=== PATIENT | female | born 1940 | race Caucasian/White ===

== ENCOUNTER 2019-07-16 01:33 | Day surgery (SDC) | payer MEDICARE, OTHER, SELFPAY ==
[2019-07-07 14:21] VITALS: BMI 21.3
[2019-07-16] VITALS (11 sets, daily range): BP systolic 122–157; BP diastolic 52–98; PULSE 72–100; RESP 16–22; TEMP 36.3; O2SAT 93–100; BMI 20.6
--- NOTE | ~2019-07-16 | XR_ITS ---
XR chest 1V portable DATE: 07/16/2019 11:06 INDICATION: Possible aspiration TECHNIQUE: Portable upright AP chest on 07/16/2019 at 1100 hours COMPARISON: 04/08/2019 2 view chest FINDINGS: The lungs are moderately hyperinflated. No pulmonary infiltrate or consolidation, pleural e ffusion or pulmonary vascular congestion or pneumothorax is detected. Normal heart size. No hilar or mediastinal enlargement. Osteopenia. IMPRESSION: No active cardiopulmonary disease Reviewed, dictated and finalized at location A. [employer]
[2019-07-16] MEDS: LACTATED RINGERS 1,000 ML 150 ML IV CONT ×2 (08:21→09:18)
--- NOTE | 2019-07-16 08:25 | WPDGICN ---
Assessment and Plan Additional Plan This is an 79-year-old white female patient seen in evaluation at the request of Dr. Villaseñor. Patient reports 12 lb weight loss over the last year. She denies any appetite. She feels full very quickly after eating. She notices a rather vague right lower quadrant abdominal pain. She describes is a brief sharp pain that occurs intermittently. It is not specifically related to diet or activity. She denies heartburn. Her weight appetite bowel movements appear normal. Intermittently she will have chills. Past medical history is significant for GE reflux disease. She has been treated for hypothyroidism. Her last colonoscopy was in 2006. Current medications include atorvastatin. Levothyroxine. Omeprazole. Vitamins and supplements. She has no stated drug allergies. Family history is noncontributory. On physical exam patient is alert. Oriented x3. Vital signs stable. HEENT exam unremarkable. She is anicteric. Lungs are clear to auscultation and percussion. Heart is without murmur or extra sounds. Abdominal exam bowel sounds are present soft nontender with no organomegaly. Digital external rectal exam normal. Impression 1. Weight loss. 2. GE reflux disease. 3. Early satiety. 4. Right lower quadrant pain. 5. Neoplasia screening. Plan is for both colonoscopy an EGD to assess her symptoms. Further recommendations will be given after endoscopy. She should continue omeprazole for her known history of GE reflux disease. GI Consult Note Consult date/time: 07/16/19 08:25 HPI: Lety Salinas is a 79 year old female [facility] Social History Social History Smoking status: Never smoker Alcohol intake: current Meds Home Medications and Allergies Home Medications Medication Instructions Recorded Confirmed Type atorvastatin 20 mg tablet 20 mg PO DAILY PRN #90 tablet 05/04/19 07/07/19 Rx levothyroxine 50 mcg tablet 50 mcg PO DAILY #90 tablet 05/29/19 07/07/19 Rx C,E,zinc,copper [id number] 1 cap PO QAM 07/07/19 07/07/19 History [Ocuvite Adult 50 Plus] calcium carbonate-vitamin D3 1 tablet PO DAILY 07/07/19 07/07/19 History [Calcium 600 + D(3)] cyclosporine [Restasis] 1 drp OPHTHALMIC (EYE) Q12H 07/07/19 07/07/19 History denosumab [Prolia] 60 mg SUBCUT [id number] 07/07/19 07/07/19 History omeprazole 20 mg PO DAILY 07/07/19 07/07/19 History clotrimazole 10 mg marta 10 mg MUCOUS MEM .5x daily #50 07/13/19 07/13/19 Rx tablet Allergies Allergy/AdvReac Type Severity Reaction Status Date / Time No Known Drug Allergies Allergy Unknown X Verified 07/16/19 08:23
--- NOTE | 2019-07-16 08:40 | WPDANESEPPF ---
Anes - Initial Pre Proc Eval Procedure: Operation Date: 07/16/19 09:00 Proposed Procedures p Esophagogastroduodenoscopy & Screening Colonoscopy - Zay Peralta MD Date/Time: 07/16/19 08:40 Surgeon: Zay Peralta MD Pre Op Diagnosis: Neoplasm screening, GERD, early saitey Patient Data Age: 79 Gender: F Height: 4 ft 11 in Weight: 46.4 kg Last Vital Signs Temp 97.3 F L 07/16/19 08:29 Pulse 100 07/16/19 08:29 Resp 18 07/16/19 08:29 BP 135/68 07/16/19 08:29 Pulse Ox 100 07/16/19 08:29 Allergies Allergy/AdvReac Type Severity Reaction Status Date / Time No Known Drug Allergies Allergy Unknown X Verified 07/16/19 08:23 Home Medications Medication Instructions Recorded Confirmed Type atorvastatin 20 mg tablet 20 mg PO DAILY PRN #90 tablet 05/04/19 07/07/19 Rx levothyroxine 50 mcg tablet 50 mcg PO DAILY #90 tablet 05/29/19 07/07/19 Rx C,E,zinc,copper [id number] 1 cap PO QAM 07/07/19 07/07/19 History [Ocuvite Adult 50 Plus] calcium carbonate-vitamin D3 1 tablet PO DAILY 07/07/19 07/07/19 History [Calcium 600 + D(3)] cyclosporine [Restasis] 1 drp OPHTHALMIC (EYE) Q12H 07/07/19 07/16/19 History denosumab [Prolia] 60 mg SUBCUT [id number] 07/07/19 07/07/19 History omeprazole 20 mg PO DAILY 07/07/19 07/07/19 History clotrimazole 10 mg marta 10 mg MUCOUS MEM .5x daily #50 07/13/19 07/16/19 Rx tablet Patient hx anesthesia problems: none Family hx anesthesia problems: none PMFSH Past Medical History Medical History (Updated 07/16/19 @ 08:40 by Darci Soares MD) Asthma GERD (gastroesophageal reflux disease) Hyperlipidemia Hypothyroid KARMEN (obstructive sleep apnea) Social History Social History Smoking status: Never smoker Alcohol intake: current Anes - Eval Final PreProcedure Day of Procedure 07/16/19 08:40 Patient weight: normal Heart: regular rate and rhythm Lungs: clear to auscultation Airway: Mallampati scale class II Neurological: alert and oriented Last oral intake: >/= 8 hours ASA classification: III Emergent: no Anesthetic plan: proceed Anesthesia type and monitoring: general GIVS and standard monitoring Informed Consent: The patient's anesthetic plan and its attendant risks and benefits were discussed with the patient/family/POA. Questions were solicited and answers provided to the satisfaction of the patient/family/POA.
[2019-07-16] MEDS: BENZOCAINE (*SP) 60 ML SPRAY CAN (HURRICAINE) 1 SPRAY MUCOUS MEM (09:21)
[2019-07-16] MEDS: SIMETHICONE ORAL SUSPENSION 20 MG/0.3 ML 30 ML BOTTLE 0.6 ML IRRIGATION (09:41)
--- NOTE | 2019-07-16 10:49 | SUR.PHASEII ---
Patient having some chest pain, Dr. Soares aware and orders given for portable chest x-ray.
--- NOTE | 2019-07-16 11:00 | SUR.PHASEII ---
x-ray in room @1105
--- NOTE | 2019-07-16 11:42 | SUR.PHASEII ---
Chest x-ray results read, Dr. Soares aware. Dr. Soares talked with patient and patient was sent home with incentive spirometer and encouraged use.
== END 2019-07-16 11:49 | disposition home or self-care (01) ==
PROVIDERS: PCP Family Medicine; Visit Provider Internal Medicine Gastroenterology
PROC: 0DJ08ZZ Inspection of Upper Intestinal Tract, Via Natural or Artificial Opening Endoscopic (ICD-10-PCS; CPT 43235; principal; 2019-07-16 09:00)
DX: Z12.11 Encounter for screening for malignant neoplasm of colon (principal); R10.31 Right lower quadrant pain; D12.2 Benign neoplasm of ascending colon; K57.30 Diverticulosis of large intestine without perforation or abscess without bleeding; K64.8 Other hemorrhoids; K21.9 Gastro-esophageal reflux disease without esophagitis; E03.9 Hypothyroidism, unspecified; R63.4 Abnormal weight loss; R68.81 Early satiety
CPT/HCPCS: 45385; 43239; 71045; 87081; 88305; J2704; J7120

== ENCOUNTER → 2019-08-06 11:37 | Outpatient (REF) | payer MEDICARE, OTHER, SELFPAY | LOC: ANHLAB 11:37 | PROVIDERS: PCP Family Medicine; Visit Provider Nurse Practitioner Family | DX: H61.001 Unspecified perichondritis of right external ear (principal) | CPT/HCPCS: 88305 ==

== ENCOUNTER 2019-08-22 09:59 | Emergency (ER) | payer MEDICARE, OTHER, SELFPAY ==
[2019-08-22 10:13] VITALS: BP 128/65; PULSE 95; RESP 18; TEMP 38.7; O2SAT 100
[2019-08-22 10:15] VITALS: TEMP 38.8
[2019-08-22] MEDS: ACETAMINOPHEN 500 MG TABLET 1000 MG PO (10:15)
--- NOTE | 2019-08-22 10:34 | PC.NURSE ---
Tylenol 1000 mg given at 0925-won't scan
--- NOTE | 2019-08-22 10:48 | ED.GENADULT ---
HPI - General Adult General Chief complaint: Upper Respiratory Infection Stated complaint: Fever Time Seen by Provider: 08/22/19 10:48 Source: patient and RN notes reviewed Mode of arrival: ambulatory Limitations: no limitations History of Present Illness HPI narrative: 79-year-old female with complaints of upper respiratory infection symptoms, fever, and cough for the past (started last Saturday night, awaken during the night with symptoms) 3 days. Aspirin (2 tablets last on 08/21/19 @21:00)with little relief. Dry cough. No chest congestion. Rhinorrhea and nasal congestion. No exacerbating factors. High fevers, highest 101.5F, orally with intermittent chills. No nausea, vomiting, and abdominal pain. Tolerating po intake well. Denies chest pain, dyspnea, coughing up blood, sore throat, difficulty swallowing, jaw pain, dental pain, facial pain, foreign body sensation, and rash. Remains active. Some parts of this dictation were generated by voice recognition software and may contain typographical and/or grammatical inaccuracies. Related Data Home Medications Medication Instructions Recorded Confirmed C,E,zinc,copper [id number] 1 cap PO QAM 07/07/19 08/22/19 [Ocuvite Adult 50 Plus] calcium carbonate-vitamin D3 1 tablet PO DAILY 07/07/19 08/22/19 [Calcium 600 + D(3)] cyclosporine [Restasis] 1 drp OPHTHALMIC (EYE) Q12H 07/07/19 08/22/19 denosumab [Prolia] 60 mg SUBCUT [id number] 07/07/19 08/22/19 omeprazole 20 mg PO DAILY 07/07/19 08/22/19 Allergies Allergy/AdvReac Type Severity Reaction Status Date / Time No Known Drug Allergies Allergy Unknown X Verified 08/22/19 10:48 Review of Systems Review of Systems: Narrative: CONSTITUTIONAL: Complains of fever, chills. Denies sweats. EYES: Denies visual changes, redness, discharge. ENT: Complains of rhinorrhea, congestion. Denies sore throat, otalgia. CARDIOVASCULAR: Denies chest pain, palpitations, edema. RESPIRATORY: Denies dyspnea, wheezing. Complains of dry cough. GASTROINTESTINAL: Denies abdominal pain, nausea, vomiting, diarrhea. GENITOURINARY: Denies dysuria, hematuria, abnormal discharge. SKIN: Denies rash or itching. MUSCULOSKELETAL: Denies acute back pain, joint pain, myalgia. NEUROLOGIC: Denies numbness or focal weakness. PSYCHIATRIC: Denies anxiety or depression. All systems reviewed & are unremarkable except as noted in HPI and below. [facility] Past Medical History Medical History Asthma GERD (gastroesophageal reflux disease) Hyperlipidemia Hypothyroid KARMEN (obstructive sleep apnea) Surgical History Surgical History History of cataract extraction Family History Family History Mother Hypertension Family history of cardiovascular disease Cerebrovascular accident Father Family history of cardiovascular disease Family history of hepatitis Family history of congestive heart failure Grandparent Family history of cardiovascular disease Other Family history of lung cancer Family history of malignant neoplasm Family history of malignant neoplasm of ovary Social History Social History (Updated 08/22/19 @ 10:57 by LILLY Martinez) Smoking status: Never smoker Second hand tobacco smoke exposure: No Alcohol intake: current Substance use: never Living arrangements: with family Occupation/Education: retired Gender identity (if verbalized by the patient): Female Comments At time of signature, agree with nurse past medical, surgical, social, and family history. There is no relevant family history pertinent to the presenting complaint. Exam Narrative: Exam Narrative: GENERAL: This is a well-nourished, well-developed patient, in no apparent distress. Speaks in full sentences and ambulates with steady gait without dyspnea. HEAD: normocephalic, a
[2019-08-22 11:04] VITALS: PULSE 88; RESP 16; TEMP 38.6; O2SAT 98
== END 2019-08-22 11:04 | disposition home or self-care (01) ==
PROVIDERS: Emergency Provider Nurse Practitioner Family; PCP Family Medicine
DX: J11.1 Influenza due to unidentified influenza virus with other respiratory manifestations (principal)
CPT/HCPCS: 87804; 99213; A9270; G0463

== ENCOUNTER 2020-05-10 06:52 | Outpatient (NON) | payer MEDICARE, OTHER, SELFPAY ==
[2020-05-11 02:00] LABS: SARS-CoV-2 RNA PCR Positive
== END 2020-05-10 06:53 ==
PROVIDERS: PCP Family Medicine; Visit Provider Family Medicine
DX: U07.1 COVID-19 (principal)
CPT/HCPCS: 87635; C9803; U0003

== ENCOUNTER 2020-05-12 18:58 | Emergency (ER) | payer MEDICARE, OTHER, SELFPAY ==
[2020-05-12] VITALS (30 sets, daily range): BP systolic 123–167; BP diastolic 55–76; PULSE 57–97; RESP 12–40; TEMP 36.7; O2SAT 96–100
--- NOTE | ~2020-05-12 | CT_ITS ---
EXAMINATION: CT abdomen pelvis w con DATE: 05/12/2020 20:43 INDICATION: Abdominal pain. Nausea and vomiting. TECHNIQUE: Computed tomography (CT) of the abdomen and pelvis was performed with 100 mL Omnipaque 350 intravenous contrast. Automated exposure control and iterative reconstruction technique were employe d. The dose-length product was 183.75 mGy-cm. COMPARISON: CT abdomen and pelvis 09/24/18 FINDINGS: The visualized portions of the lung bases demonstrate peripheral airspace and groundglass o pacities in the lower lobes with volume loss. There are small bilateral posterior diaphragmatic herni as containing fat. No pleural effusion. The heart size is normal. No pericardial effusion. There is a small sliding hiatal hernia. The liver is normal. There is a chronic 6 mm low-attenuation mass in th e spleen, likely benign. The gallbladder, pancreas, and adrenal glands are normal. There is cortical thinning of the kidneys. There is a 2.0 cm cyst in right kidney. There are no dilated loops of bowel. The appendix is normal. Again seen are 2 cysts in the right ovary with the larger measuring 2.4 cm, likely benign. The bladder is distended. There are no pathologically enlarged lymph nodes. There is n o free intraperitoneal fluid. There is mild thoracolumbar spondylosis. IMPRESSION: 1. Peripheral airspace and groundglass opacities in the lower lobes, consistent with atelectasis vers us pneumonia. 2. Small sliding hiatal hernia. Reviewed, dictated and finalized at location A. [facility] [employer] IMPRESSION: 1. Peripheral airspace and groundglass opacities in the lower lobes, consistent with atelectasis versus pneumonia. 2. Small sliding hiatal hernia.
[2020-05-12] MEDS: SODIUM CHLORIDE 0.9% IV 1,000 ML 999 ML IV CONT (19:33)
[2020-05-12 19:59] LABS: Basophils Percent Auto 0.2 % (0.2-1.2); Eosinophils Percent Auto 0.2 % (0-4.4); Hematocrit 36.1 % (37.0-47.0); Hemoglobin 11.9 g/dL (12.0-15.0); Immature Granulocyte Absolute 0.02 K/mm3 (0.00-0.031); Immature Granulocyte Percent A 0.4 % (0-0.5); Immature Platelet Fraction Pct 7.9 % (0.9-11.2); Lymphocytes Absolute Auto 0.73 K/mm3 (0.9-3.2); Lymphocytes Percent Auto 15.1 % (18.3-44.2); Mean Corpuscular Hemoglobin 29.5 pg (26-34); Mean Corpuscular Volume 89.4 fl (80-100); Mean Platelet Volume 11.5 fl (7.4-10.4); Monocytes Absolute Auto 0.5 K/mm3 (0.1-0.6); Neutrophils Absolute Auto 3.6 K/mm3 (1.3-6.7); Neutrophils Percent Auto 74.1 % (45.5-73.1); Platelet Count Result 118 k/mm3 (150-375); Red Blood Count 4.04 M/mm3 (4.2-5.4); Red Cell Distribution Width 13.2 % (11.5-14.5); White Blood Count 4.8 K/mm3 (4.5-10.0)
[2020-05-12 20:11] LABS: Alanine Aminotransferase 41 U/L (4-35); Albumin Level 3.1 g/dL (3.5-5.1); Alkaline Phosphatase 65 U/L (38-126); Anion Gap 7 mmol/L (8-16); Aspartate Amino Transferase 50 U/L (14-36); Bilirubin,Total 0.6 mg/dL (0.2-1.3); Blood Urea Nitrogen 10 mg/dL (7-17); Carbon Dioxide 26 mmol/L (22-30); Chloride 104 mmol/L (98-107); Estimated Glomerular Filt Rate > 60; Glucose 129 mg/dL (65-105); Lipase 122 U/L (23-300); Potassium 3.7 mmol/L (3.4-5.0); Sodium 137 mmol/L (137-145)
--- NOTE | 2020-05-12 21:08 | ED.GENADULT ---
HPI - General Adult General Chief complaint: Nausea/Vomiting/Diarrhea Stated complaint: weakness Time Seen by Provider: 05/12/20 19:26 History of Present Illness HPI narrative: Patient is a 79-year-old female who presents emergency department with chief complaint of generalized weakness. Patient reports that she was recently diagnosed with COVID-19 and has had nausea and has had one episode of vomiting. The patient states that she has been extremely weak states she is not been eating very much and has had not been taking much p.o. intake. Patient reports his symptoms are not worsened by anything nor they improve by anything. Related Data Home Medications Medication Instructions Recorded Confirmed C,E,zinc,copper [id number] 1 cap PO QAM 07/07/19 03/28/20 [Ocuvite Adult 50 Plus] calcium carbonate-vitamin D3 1 tablet PO DAILY 07/07/19 03/28/20 [Calcium 600 + D(3)] cyclosporine [Restasis] 1 drp OPHTHALMIC (EYE) Q12H 07/07/19 03/28/20 denosumab [Prolia] 60 mg SUBCUT [id number] 07/07/19 03/28/20 atorvastatin 20 mg PO DAILY 03/28/20 03/28/20 omeprazole 20 mg PO BID 03/28/20 03/28/20 Allergies Allergy/AdvReac Type Severity Reaction Status Date / Time No Known Drug Allergies Allergy Unknown X Verified 05/12/20 19:13 Review of Systems Review of Systems: Narrative: CONSTITUTIONAL: Denies fever, chills, or sweats. EYES: Denies visual changes, redness, or discharge. ENT: Denies rhinorrhea, congestion, sore throat, or otalgia. CARDIOVASCULAR: Denies chest pain, palpitations, or edema. RESPIRATORY: Denies cough or dyspnea. GASTROINTESTINAL: Denies abdominal pain, nausea, vomiting, or diarrhea. GENITOURINARY: Denies dysuria or hematuria. SKIN: Denies rash or itching. MUSCULOSKELETAL: Denies back pain, joint pain, or myalgia. NEUROLOGIC: Denies headache, numbness, or weakness. PSYCHIATRIC: Denies anxiety or depression. A 10 system review of systems was completed on the patient and is negative except for what is stated in the HPI. Nursing and ancillary documentation was reviewed. [facility] Past Medical History Medical History (Updated 05/12/20 @ 22:44 by Nicholas Mehta MD) Asthma GERD (gastroesophageal reflux disease) Hyperlipidemia Hypothyroid KARMEN (obstructive sleep apnea) Surgical History Surgical History History of cataract extraction Family History Family History Mother Hypertension Family history of cardiovascular disease Cerebrovascular accident Father Family history of cardiovascular disease Family history of hepatitis Family history of congestive heart failure Grandparent Family history of cardiovascular disease Other Family history of lung cancer Family history of malignant neoplasm Family history of malignant neoplasm of ovary Social History Social History Smoking status: Never smoker Second hand tobacco smoke exposure: No Alcohol intake: current Substance use: never Gender identity (if verbalized by the patient): Female Sexual Orientation (if Verbalized by the Patient): Straight or Heterosexual Spiritual care concerns: No Exam Narrative: Exam Narrative: GENERAL: Well-appearing, well-nourished, and in no acute distress. HEAD: Normocephalic, atraumatic. EYES: PERRLA and EOMI. ENT: Nares clear, no rhinorrhea or epistaxis. Mucous membranes moist. NECK: Supple. CHEST: Clear to auscultation. No respiratory distress. HEART: Regular rate and rhythm. No murmur heard. Normal peripheral pulses. ABDOMEN: Soft, nontender, nondistended, normal active bowel sounds. EXTREMITIES: Normal range of motion. No edema. SKIN: Warm, dry, no rash. NEURO: No focal deficits. Alert and oriented x3. PSYCH: Normal mood and affect. Course Vital Signs Vital signs: Vital Signs Pulse Rate 81 05/12
[2020-05-12 21:22] LABS: Add Urine Microscopic? YES; Appearance Urine Clear (Clear); Bilirubin Urine Negative (Negative); Blood Urine Negative (Negative); Color Urine Colorless (Yellow); Glucose Urine UA Negative (Negative); Ketones Urine Trace mg/dL (Negative); Leukocyte Esterase Ur Negative LEU/UL (Negative); Nitrate Urine Negative (Negative); Protein Urine Negative (Negative); RBC Urine 0-2 /hpf (0-2); Specific Grav Ur 1.013 (1.001-1.035); Urobilinogen Urine Negative mg/dL (<2.0); WBC Urine 0-3 /hpf
[2020-05-12] MEDS: ONDANSETRON INJ 4 MG/2 ML VIAL IV PUSH (21:45)
== END 2020-05-12 23:04 | disposition home or self-care (01) ==
PROVIDERS: Emergency Provider Emergency Medicine; PCP Family Medicine
DX: U07.1 COVID-19 (principal); R11.2 Nausea with vomiting, unspecified; J45.909 Unspecified asthma, uncomplicated; K21.9 Gastro-esophageal reflux disease without esophagitis; E78.5 Hyperlipidemia, unspecified; E03.9 Hypothyroidism, unspecified; G47.30 Sleep apnea, unspecified
CPT/HCPCS: 36415; 74177; 80053; 81001; 83690; 85025; 85055; 96361; 96374; 99284; J2405; J7030; Q9967

== ENCOUNTER → 2020-09-27 07:04 | Outpatient (CLI) | payer MEDICARE, OTHER, SELFPAY ==
[2020-09-27 20:45] LABS: SARS-CoV-2 RNA PCR Negative
== END ==
PROVIDERS: PCP Family Medicine; Visit Provider Physician Assistant
DX: Z20.822 Contact with and (suspected) exposure to COVID-19 (principal); R50.9 Fever, unspecified
CPT/HCPCS: C9803; U0003; U0005

== ENCOUNTER 2021-02-03 11:36 | Emergency (ER) | payer MEDICARE, OTHER, SELFPAY ==
--- NOTE | ~2021-02-03 | XR_ITS ---
XR thoracic spine 3V DATE: 02/03/2021 16:32 INDICATION: Mid back pain TECHNIQUE: AP, lateral, swimmer views COMPARISON: None FINDINGS: There is diffuse osteopenia. There is moderately prominent loss of interspace height at C3-4, C4-5 and severe degenerative disc di sease at C5-6 and C6-7. There is degenerative spurring of the thoracic spine. There is minimal levoscoliosis of the upper thoracic spine. No thoracic spine fracture or bone destruction. The thoracic pedicles are intact. No paraspinal soft tissue thickening. IMPRESSION: Degenerative changes of the cervical and thoracic spine Osteopenia Reviewed, dictated and finalized at location A.
--- NOTE | ~2021-02-03 | XR_ITS ---
EXAMINATION: XR_CERV2-3V_CR DATE: 02/03/2021 16:32 INDICATION: Neck pain. TECHNIQUE: 4 views of cervical spine were obtained. COMPARISON: None. FINDINGS: There is 2 mm retrolisthesis of C6 on C7. Vertebral body heights are normal. There is moder ately decreased disc height at C3-C4 and C5-C6, mildly decreased disc height at C4-C5, and severely d ecreased disc height at C6-C7. There is severe uncovertebral joint osteoarthritis bilaterally at C5-C 6 and C6-C7, on the left at C3-C4, and on the right at C4-C5. There is multilevel facet joint osteoar thritis, severe on the right at C4-C5 and on the left at C5-C6. There is mild central canal stenosis at C3-C4, C4-C5, C5-C6, and C6-C7. No prevertebral soft tissue swelling. IMPRESSION: 1. Severe cervical spondylosis. Reviewed, dictated and finalized at location B.
--- NOTE | ~2021-02-03 | XR_ITS ---
XR lumbar spine 2-3V DATE: 02/03/2021 16:32 INDICATION: Low back pain TECHNIQUE: AP, lateral, coned lateral lumbosacral views COMPARISON: 09/19/2018 lumbar spine FINDINGS: There is mild dextroscoliosis of the thoracolumbar spine. Diffuse osteopenia. Grade 1 anterolisthesis at L4-5 due to degenerative change at the apophyseal joints. There is mild to moderate degenerative disc disease of the upper and mid lumbar spine. No fracture or bone destruction is detected. The lumbar pedicles are intact. The sacroiliac joints are normal. IMPRESSION: Moderate osteopenia Mild to moderate degenerative disc disease of the upper and mid lumbar spine Grade 1 anterolisthesis at L4-5 due to degenerative change at the apophyseal joints Reviewed, dictated and finalized at location A. IMPRESSION: Moderate osteopenia Mild to moderate degenerative disc disease of the upper and mid lumbar spine Grade 1 anterolisthesis at L4-5 due to degenerative change at the apophyseal elise ints
[2021-02-03 12:08] VITALS: BP 147/73; PULSE 74; RESP 16; TEMP 36.3; O2SAT 100
--- NOTE | 2021-02-03 12:11 | ECG_ITS ---
Measurements Intervals [place] Rate: 69 P: 59 SC: 153 QRS: 25 QRSD: 81 T: 19 QT: 384 QTc: 413 Interpretive Statements SINUS RHYTHM LOW QRS VOLTAGE IN PRECORDIAL LEADS BORDERLINE T WAVE ABNORMALITY- ANTERIOR LEADS BORDERLINE ECG Electronically Signed On 02-03-2021 12:18:08 CDT by Stevo Draper D.O.
[2021-02-03 15:37] VITALS: BP 120/61; PULSE 70; RESP 14; O2SAT 100
--- NOTE | 2021-02-03 16:09 | ED.BACK ---
HPI - Back Pain/Injury General Chief Complaint: Back Pain/Injury <Alanna Bailey PA-C - Last Filed: 02/03/21 18:14> Stated Complaint: back pain <CINDI Martinez Last Filed: 02/03/21 18:14> Time Seen by Provider: 02/03/21 15:38 <Alanna Bailey PA-C - Last Filed: 02/03/21 18:14> Source: patient <Alanna Bailey PA-C - Last Filed: 02/03/21 18:14> Mode of arrival: ambulatory <Alanna Bailey PA-C - Last Filed: 02/03/21 18:14> Limitations: no limitations <CINDI Martinez Last Filed: 02/03/21 18:14> History of Present Illness HPI Narrative: This is a 80 year old female that presents to the ER for back pain present over the last week. Reports the pain started in her neck. It has now radiated into her mid and low back. Reports the pain is a dull ache. It feels muscular in nature. No known injury or trauma. She has been using over the counter pain medication with little relief. Denies fever, chest pain, shortness of breath, numbness, or weakness. <Alanna Bailey PA-C - Last Filed: 02/03/21 18:14> Related Data Home Medications: Home Medications Medication Instructions Recorded Confirmed C,E,zinc,copper [id number] 1 cap PO QAM 07/07/19 01/25/21 [Ocuvite Adult 50 Plus] calcium carbonate-vitamin D3 1 tablet PO DAILY 07/07/19 01/25/21 [Calcium 600 + D(3)] cyclosporine [Restasis] 1 drp OPHTHALMIC (EYE) Q12H 07/07/19 01/25/21 denosumab [Prolia] 60 mg SUBCUT [id number] 07/07/19 01/25/21 omeprazole 20 mg PO BID 03/28/20 01/25/21 <CINDI Martinez Last Filed: 02/03/21 18:14> Allergies/Adverse Reactions: Allergies Allergy/AdvReac Type Severity Reaction Status Date / Time No Known Drug Allergies Allergy Unknown X Verified 01/25/21 10:32 <Alanna Bailey PA-C - Last Filed: 02/03/21 18:14> Review of Systems Review of Systems: CONSTITUTIONAL: Denies fever CARDIOVASCULAR: Denies chest pain RESPIRATORY: Denies dyspnea. SKIN: Denies rash MUSCULOSKELETAL: Reports back pain, joint pain, and myalgia. NEUROLOGIC: Denies numbness, or weakness. PSYCHIATRIC: Reports depression. <Alanna Bailey PA-C - Last Filed: 02/03/21 18:14> All systems reviewed & are unremarkable except as noted in HPI and below <Alanna Bailey PA-C - Last Filed: 02/03/21 18:14> PMFSH Past Medical History Medical History: Medical History (Updated 02/03/21 @ 18:13 by Alanna Bailey PA-C) Asthma GERD (gastroesophageal reflux disease) Hyperlipidemia Hypothyroid KARMEN (obstructive sleep apnea) <Alanna Bailey PA-C - Last Filed: 02/03/21 18:14> Surgical History Surgical History: Surgical History History of cataract extraction <Alanna Bailey PA-C - Last Filed: 02/03/21 18:14> Family History Family History: Family History Mother Hypertension Family history of cardiovascular disease Cerebrovascular accident Father Family history of cardiovascular disease Family history of hepatitis Family history of congestive heart failure Grandparent Family history of cardiovascular disease Other Family history of lung cancer Family history of malignant neoplasm Family history of malignant neoplasm of ovary <Alanna Bailey PA-C - Last Filed: 02/03/21 18:14> Social History Social History: Social History Second hand tobacco smoke exposure: No Alcohol intake: current Substance use: never Gender identity (if verbalized by the patient): Female Spiritual care concerns: No <Alanna Bailey PA-C - Last Filed: 02/03/21 18:14> Exam Narrative: GENERAL: Well-appearing, well-nourished, and in no acute distress. HEAD: Normocephalic, atraumatic. EYES: EOMI. NECK: Supple. No adenopathy or masses. Tender to palpation of the trapezius and paraspinal musculature bilatera
[2021-02-03 16:56] LABS: Basophils Absolute Auto 0.1 K/mm3 (0.0-0.1); Basophils Percent Auto 0.7 % (0.2-1.2); Eosinophils Absolute Auto 0.1 K/mm3 (0-0.3); Eosinophils Percent Auto 0.7 % (0-4.4); Hematocrit 35.4 % (37.0-47.0); Hemoglobin 11.2 g/dL (12.0-15.0); Immature Granulocyte Absolute 0.01 K/mm3 (0.00-0.031); Immature Granulocyte Percent A 0.1 % (0-0.5); Immature Platelet Fraction Pct 8.9 % (0.9-11.2); Lymphocytes Absolute Auto 1.51 K/mm3 (0.9-3.2); Lymphocytes Percent Auto 19.9 % (18.3-44.2); Mean Corpuscular HGB Conc 31.6 g/dl (32-36); Mean Corpuscular Hemoglobin 30.1 pg (26-34); Mean Corpuscular Volume 95.2 fl (80-100); Mean Platelet Volume 11.9 fl (7.4-10.4); Monocytes Absolute Auto 0.8 K/mm3 (0.1-0.6); Neutrophils Absolute Auto 5.2 K/mm3 (1.3-6.7); Neutrophils Percent Auto 68.6 % (45.5-73.1); Platelet Count Result 138 k/mm3 (150-375); Red Blood Count 3.72 M/mm3 (4.2-5.4); Red Cell Distribution Width 13.3 % (11.5-14.5); White Blood Count 7.6 K/mm3 (4.5-10.0)
[2021-02-03] MEDS: KETOROLAC 30 MG/ML VIAL (*BKC) IM (17:04)
[2021-02-03 17:20] LABS: Creatine Kinase 43 U/L (30-135)
[2021-02-03] MEDS: ACETAMINOPHEN 500 MG TABLET 1000 MG PO (17:34)
[2021-02-03 17:54] LABS: Anion Gap 8 mmol/L (8-16); Blood Urea Nitrogen 13 mg/dL (7-17); Calcium 8.6 mg/dL (8.4-10.2); Carbon Dioxide 22 mmol/L (22-30); Chloride 105 mmol/L (98-107); Estimated CRCL calculation 44 ml/min; Estimated Glomerular Filt Rate > 60; Glucose 80 mg/dL (65-110); Potassium 3.6 mmol/L (3.4-5.0); Sodium 135 mmol/L (137-145)
[2021-02-03 18:02] VITALS: BP 142/85; PULSE 73; RESP 14; O2SAT 98
[2021-02-03 18:40] VITALS: BP 143/66; PULSE 79; RESP 16; O2SAT 96
== END 2021-02-03 18:41 | disposition home or self-care (01) ==
PROVIDERS: Physician Assistant; Emergency Provider Emergency Medicine; PCP Family Medicine
DX: M54.2 Cervicalgia (principal); E78.5 Hyperlipidemia, unspecified; E03.9 Hypothyroidism, unspecified; G47.33 Obstructive sleep apnea (adult) (pediatric); Z87.09 Personal history of other diseases of the respiratory system
CPT/HCPCS: 36415; 72040; 72072; 72100; 80048; 82550; 85025; 85055; 93005; 96372; 99284; A9270; J1885

== ENCOUNTER 2021-03-17 10:30 | Outpatient (RCR) | payer MEDICARE, OTHER, SELFPAY ==
--- NOTE | 2021-02-24 11:26 | PTOPEVAL ---
PHYSICAL THERAPY EVALUATION AND PLAN OF CARE 02-24-21 Thank you for referring Lety Salinas to [facility] for the diagnosis of neck and back pain. She is scheduled to be seen for therapy? 2 x/week for 3 weeks. Please review, sign, date and return this plan of care THUAN. I agree with and certify that the following plan of care is medically necessary. Referring Physician Date Attending Provider: Cesar Bradshaw MD *PT Outpatient Evaluation Document 02/24/21 10:30 JAYNE (Rec: 02/24/21 11:23 JAYNE [id number]) Outpatient Past Medical History Past Medical History Source of Past Medical History Recalled from Previous Visit, Confirmed with Patient/Family Neurological History Hx Other Neurological Disorders Yes: reports some memory issues recently-confused, longer write checks,hallucinations-?meds Cardiovascular History Hx Hypercholesterolemia Yes: meds Respiratory History Hx Asthma Yes Hx Bronchitis Yes Hx Pneumonia Yes Hx Sleep Apnea Yes Gastrointestinal History Hx Diverticulitis Yes Hx Gastroesophageal Reflux Disease Yes Genitourinary History Hx Genitourinary Disorders No Significant History Musculoskeletal History Hx Arthritis Yes: neck and back pain Hx Other Musculoskeletal Disorders Yes: med to increase bone growth/prolia Hematological History Hx Hematological Disorders No Significant History Endocrine History Hx Hypothyroidism Yes: recently taken off the med, not needed HEENT History Hx Cataracts Yes: 2003 B eyes Hx Eye Surgery Yes: LASER EYE SURGERY 2009 Hx Other HEENT Disorders Yes: wear glasses, dry eye syndrome Integumentary History Hx Skin Disorders No Significant History Reproductive History Hx Hormone Therapy Yes Hx Post Menopausal Yes Psychosocial History Hx Psychiatric Disorders No Significant History Pain History History of Any Previous or Ongoing No Significant History Instance of Pain Anesthesia History Hx Anesthesia Reactions No Significant History Other History Hx Other Medical Conditions Yes: had covid- ill for about 3 weeks, Apr 2020;had covid vaccine Evaluation Information Problem Diagnosis neck and back pain Onset January 15, 2021 Subjective Information gradual increase in neck and Query Text:As Reported By Patient/ back pain; no injury or trauma Family ; went to ER Feb 03, due to pain reports neck is mor
--- NOTE | 2021-03-17 11:18 | PTOPEVAL ---
PHYSICAL THERAPY DISCHARGE 03-17-21 Refer to the clinical summary below for her status today, compared to the initial evaluation for her cervical pain. The goals were partially achieved. She will be discharged from PT at this time. Her original PT order had orders for eval and treatment of cervical and lumbar pain. She reports her back is better, as long as she watches her posture and sits up straight, and does not feel like she needs any treatment for it. Some of her home exercises for her neck address her posture and include lumbar strengthening. Thank you for referring Lety Salinas to [facility] Please review, sign, date and return this discharge THUAN. I agree with and certify that the following plan of care is medically necessary. Referring Physician Date Attending Provider: Cesar Bradshaw MD Document 03/17/21 10:30 JAYNE (Rec: 03/17/21 11:18 JAYNE [id number]) Assessment Status Discharge Subjective Information Pat reports: neck exercises Query Text:As Reported By Patient/ have helped, really like the Family stim; her low back is OK, as long as she holds her back in good posture; feels like she still has some post covid symptoms: exhausted, do not have smell, does not have an appetite, have lost 2# more recently. She is seeing her general dr, Dr Kat for these problems and he is aware of them. Feels she does not need any treatment for her back, it is better and hurts only when she slouches. Pain Assessment Timing of Pain Assessment Timing of Pain Assessment Assessment Pain Scale Pain Scale Used Numeric (1 - 10) Self Report Pain Assessment Bilateral Spine, Cervical Reported Pain Level 3 Pain Frequency Chronic,Continuous Other Pain Description L > R cervical and upper traps areas- sharp pains Lowest Pain Intensity 0 Greatest Pain Intensity 6 Other Pain Aggravating Factors slouching posture Pain Score Pain Score 3: Self Report Additional Pain Score Comments Oswestry self assessment functional score 26% limitation in activity level; pt reports neck is better-- knows how to manage it now; discussed home TENS unit and pad placement Interventions Used Interventions Used By Clinicians Education,Electrical
== END 2021-03-21 08:44 | disposition home or self-care (01) ==
LOC: ANHPT 10:30
PROVIDERS: PCP Family Medicine; Visit Provider Orthopaedic Surgery
DX: M47.812 Spondylosis without myelopathy or radiculopathy, cervical region (principal)
CPT/HCPCS: 97014; 97110; 97140; 97161; G0283

== ENCOUNTER 2021-09-21 07:40 | Outpatient (CLI) | payer MEDICARE, OTHER, SELFPAY ==
--- NOTE | ~2021-09-21 | US_ITS ---
US abdomen limited INDICATION: Abnormal liver enzymes PROCEDURE: Realtime right upper abdominal ultrasound. COMPARISON: Ultrasound dated 06/21/[address] dated 05/12/2020 FINDINGS: The pancreas is normal without focal mass or pancreatic ductal dilation. Liver echotexture is normal without focal mass or intrahepatic biliary dilatation. There is normal directional flow i n the portal vein. The gallbladder is normal without stones, gallbladder wall thickening or pericholecystic fluid. Comm on bile duct measures 5 mm. No sonographic Monaco's sign. Incidental note is made of a 1.9 cm right renal cyst. IMPRESSION: 1: Unremarkable limited abdominal ultrasound. Reviewed, dictated and finalized at location A.
== END 2021-09-21 07:41 | disposition home or self-care (01) ==
PROVIDERS: PCP Family Medicine; Visit Provider Physician Assistant
DX: R74.8 Abnormal levels of other serum enzymes (principal)
CPT/HCPCS: 76705

== ENCOUNTER 2021-10-14 07:41 | Outpatient (CLI) | payer MEDICARE, OTHER, SELFPAY ==
--- NOTE | ~2021-10-14 | DEXA_ITS ---
Bone Density Report Name: JHONATAN PALMA Age: 81 Sex: Female Ethnicity: White Date of : 1940 Indication: osteopenia; monitoring treatment; postmenopausal Referring Provider: LUDIN WHYTE Study: Bone densitometry was performed. Exam Date: October 14, 2021 Accession number: [id number] Bone Density: Region BMD T-score Z-score Classification AP Spine(L1-L4) 0.874 -1.6 1.2 Osteopenia Femoral Neck (Left) 0.595 -2.3 0.2 Osteopenia Total Hip (Left) 0.674 -2.2 0.0 Osteopenia Femoral Neck (Right) 0.591 -2.3 0.1 Osteopenia Total Hip (Right) 0.703 -2.0 0.3 Osteopenia Total Hip Mean 0.689 -2.1 0.2 Osteopenia World Health Organization criteria for BMD impression classify patients as: Normal (T-score at or above -1.0), Osteopenia (T-score between -1.0 and -2.5), or Osteoporosis (T-score at or below -2.5). 10-year Fracture Risk: FRAX not reported because: Treated for osteoporosis Previous Exams: Region Exam Age BMD T-score BMD Change BMD Change Date g/cm2 vs Baseline vs Previous AP Spine (L1-L4) 10/14/2021 81 0.874 -1.6 0.098 (12.6%)# 0.077 (9.7%)* 12/30/2015 75 0.797 -2.3 0.021 (2.7%)# 0.021 (2.7%)# 06/13/2013 72 0.776 -2.5 Total Hip(Left) 10/14/2021 81 0.674 -2.2 -0.021 (-3.0%) -0.002 (-0.4%) 12/30/2015 75 0.677 -2.2 -0.019 (-2.7%) -0.019 (-2.7%) 06/13/2013 72 0.695 -2.0 Total Hip(Right) 10/14/2021 81 0.703 -2.0 0.014 (2.1%)# 0.020 (3.0%) 12/30/2015 75 0.683 -2.1 -0.006 (-0.8%) -0.006 (-0.8%) 06/13/2013 72 0.689 -2.1 *Denotes significance at 95% confidence level, LSC for AP Spine = 0.022 g/cm2, LSC for Total Hip = 0.027 g/cm2 # Denotes dissimilar scan types or analysis methods Clinical Information Provided by Patient: Is being treated for osteoporosis Has used the following medications: Prolia (i.e. denosumab), Calcium Patient maximum height was 60 Menopause Age: 51 No regular weight bearing exercise Drinks caffeinated beverages Onset of menses at age 9 Number of children 0 Impression: The patient has low bone mass, based on the Left Femoral Neck T-score. No significant bone loss was observed. Discussion: PATIENT UNDER TREATMENT WITH NO SIGNIFICANT BMD LOSS SINCE LAST EXAM. In an untreated patient, BMD typically declines with age. A lack of decline or gain is usually a sign that treatment is efficacious and fracture risk is reduced. It is important to ask patients wh
== END 2021-10-14 07:42 | disposition home or self-care (01) ==
LOC: ANHIMG 07:42
PROVIDERS: PCP Family Medicine; Visit Provider Family Medicine
DX: M81.0 Age-related osteoporosis without current pathological fracture (principal); M85.88 Other specified disorders of bone density and structure, other site; M85.852 Other specified disorders of bone density and structure, left thigh; M85.851 Other specified disorders of bone density and structure, right thigh
CPT/HCPCS: 77080

== ENCOUNTER 2021-12-25 07:50 | Outpatient (CLI) | payer MEDICARE, OTHER, SELFPAY ==
--- NOTE | ~2021-12-25 | CT_ITS ---
EXAMINATION: CT abdomen pelvis w con DATE: 12/25/2021 08:28 INDICATION: Weight loss for one year. Constipation. TECHNIQUE: Computed tomography (CT) of the abdomen and pelvis was performed with 100 CC Omnipaque 300 intravenous contrast. Automated exposure control and iterative reconstruction technique were employe d. Exam dose: 196.33 mGy-cm total exam DLP. COMPARISON: 09/21/2021 Limited abdominal ultrasound 05/12/2020 CT abdomen pelvis FINDINGS: Small bilateral fat-containing foramen of Bochdalek hernias. Small sliding hiatal hernia. Mild discoid atelectasis in the dependent lower lobes. Heart size is within normal limits. No pericardial or pleural effusion. Diffuse hepatic steatosis. The liver, gallbladder, bile ducts, pancreas and pancreatic duct are other guzman unremarkable. Normal splenic size. There are couple of very small cysts of the spleen. Normal morphology of the adrenal glands. 1.9 cm right mid to upper lateral renal cyst and 4 mm lower pole right renal cyst. 1.3 cm exophytic upper pole left renal cyst. There is left renal scarring and mild to moderate volume loss. No urinary tract calculus or hydroureteronephrosis. The urinary urinary bladder is unremarkable. There is atherosclerotic calcification of the abdominal aorta but no aneurysm. No intraperitoneal or retroperitoneal or pelvic mass lesion or adenopathy or ascites is noted. Normal appendix. There are numerous diverticula of the sigmoid colon; no CT evidence of diverticuliti s. No bowel obstruction, bowel wall thickening, pneumatosis or intraperitoneal free air. 2. Stable right ovarian cysts are again noted, the larger approximately 2 cm, stable since 05/12/2020 . The uterus and adnexal areas are otherwise unremarkable. Degenerative change at the apophyseal joints with associated minimal grade 1 anterolisthesis at L4-5. No suspicious osteolytic or osteoblastic lesions. IMPRESSION: No significant change since 05/12/2020 Reviewed, dictated and finalized at Location A. Reviewed, dictated and finalized at location A.
[2021-12-25 08:19] LABS: Estimated Glomerular Filt Rate > 60
== END 2021-12-25 07:51 | disposition home or self-care (01) ==
PROVIDERS: PCP Family Medicine; Visit Provider Physician Assistant
DX: R63.4 Abnormal weight loss (principal)
CPT/HCPCS: 74177; Q9967

== ENCOUNTER 2022-01-15 00:20 | Day surgery (SDC) | payer MEDICARE, OTHER, SELFPAY ==
[2022-01-02 09:50] VITALS: BMI 20.3
[2022-01-15 07:09] VITALS: BP 117/75; PULSE 85; RESP 16; TEMP 36.3; O2SAT 99
[2022-01-15] MEDS: LACTATED RINGERS 1,000 ML 150 ML IV CONT (07:14)
--- NOTE | 2022-01-15 07:58 | PM.IMHP ---
H&P: HPI History of Present Illness Date/Time: 01/15/22 07:58 Chief Complaint: History of large colon polyp and GE reflux disease. Narrative: This is an 81-year-old white female patient presents for follow-up colonoscopy. Patient found to have very large colon polyps in 2019. She resents presents today for follow-up colonoscopy to ensure complete removal. Patient also continues to have dyspepsia. She is intolerant of red sauces. Has an underlying history of GE reflux disease. Follow-up EGD is advised because of her ongoing complaints of dyspepsia. Further recommendations will be given after endoscopy. Family history noncontributory. [facility] Past Medical History Medical History (Updated 11/28/21 @ 12:08 by Juan Carlos Grullon PA-C) Asthma GERD (gastroesophageal reflux disease) Hyperlipidemia Hypothyroid KARMEN (obstructive sleep apnea) Surgical History Surgical History History of cataract extraction Family History Family History Mother Hypertension Family history of cardiovascular disease Cerebrovascular accident Father Family history of cardiovascular disease Family history of hepatitis Family history of congestive heart failure Grandparent Family history of cardiovascular disease Other Family history of lung cancer Family history of malignant neoplasm Family history of malignant neoplasm of ovary Social History Social History Smoking status: Never smoker Second hand tobacco smoke exposure: No Alcohol intake: current Alcohol use details: 1 drink monthly Substance use: never Substance use type: does not use Living arrangements: with family Gender identity (if verbalized by the patient): Female Sexual Orientation (if Verbalized by the Patient): Straight or Heterosexual Spiritual care concerns: No Meds Home Medications and Allergies Home Medications Medication Instructions Recorded Confirmed Type calcium carbonate 600 mg-vitamin 1 tablet PO DAILY 07/07/19 01/15/22 History D3 5 mcg (200 unit) tablet (Calcium 600 + D(3)) cyclosporine 0.05 % eye drops in a 1 drp ophthalmic (eye) Q12H 07/07/19 01/15/22 History dropperette (Restasis) denosumab 60 mg/mL subcutaneous 60 mg subcut [id number] 07/07/19 01/15/22 History syringe (Prolia) vit C,E,zinc,copper-vmwao2b 250 1 cap PO QAM 07/07/19 01/15/22 History mg-lutein 5 mg-zeaxanthin 1 mg capsule (Ocuvite Adult 50 Plus) ipratropium bromide 21 mcg (0.03 2 spray intranasal TID #30 mL 06/20/20 01/15/22 Rx %) nasal spray fluticasone propionate 50 2 spray intranasal DAILY #16 grams 09/26/20 01/15/22 Rx mcg/actuation nasal spray,suspension (Allergy Relief (fluticasone)) omeprazole 20 mg capsule,delayed See Rx Instructions .Route 05/16/21 01/15/22 Rx release .COMPLEX #90 caps Allergies Allergy/AdvReac Type Severity Reaction Status Date / Time No Known Allergies Allergy Verified 01/15/22 07:06 Vital Signs Vital Signs - 24 hr 01/15/22 07:09 Temperature 97.4 F L Pulse Rate 85 Respiratory Rate 16 Blood Pressure 117/75 Pulse Oximetry 99 Oxygen Delivery Room Air Exam Narrative: Physical exam reveals patient to be alert. Vital signs stable. HEENT exam is unremarkable lungs are clear to auscultation and percussion. Heart is without murmur or extra sounds. Abdominal exam bowel sounds are present soft nontender with no organomegaly. Digital external rectal exam is normal. Assessment and Plan Assessment and plan (1) History of colon polyps: Code(s): Z86.010 - Personal history of colonic polyps Status: Acute Assessment and Plan: Patient has a history of very large colon polyps 2019. Plan is for surveillance colonoscopy now. Further recommendations will be given after endoscopy. (2) Gastro-esoph
--- NOTE | 2022-01-15 08:08 | WPDANESEPPF ---
Anes - Initial Pre Proc Eval Procedure: Operation Date: 01/15/22 08:30 Proposed Procedures p Esophagogastroduodenoscopy & Colonoscopy - Zay Peralta MD Date/Time: 01/15/22 08:08 Surgeon: aZy Peralta MD Pre Op Diagnosis: GERD; abnormal weight loss Patient Data Age: 81 Gender: F Height: 1.52 m Weight: 45 kg Last Vital Signs Temp 97.4 F L 01/15/22 07:09 Pulse 85 01/15/22 07:09 Resp 16 01/15/22 07:09 BP 117/75 01/15/22 07:09 Pulse Ox 99 01/15/22 07:09 O2 Del Method Room Air 01/15/22 07:09 Allergies Allergy/AdvReac Type Severity Reaction Status Date / Time No Known Allergies Allergy Verified 01/15/22 07:06 Home Medications Medication Instructions Recorded Confirmed Type calcium carbonate 600 mg-vitamin 1 tablet PO DAILY 07/07/19 01/15/22 History D3 5 mcg (200 unit) tablet (Calcium 600 + D(3)) cyclosporine 0.05 % eye drops in a 1 drp ophthalmic (eye) Q12H 07/07/19 01/15/22 History dropperette (Restasis) denosumab 60 mg/mL subcutaneous 60 mg subcut [id number] 07/07/19 01/15/22 History syringe (Prolia) vit C,E,zinc,copper-loueg7n 250 1 cap PO QAM 07/07/19 01/15/22 History mg-lutein 5 mg-zeaxanthin 1 mg capsule (Ocuvite Adult 50 Plus) ipratropium bromide 21 mcg (0.03 2 spray intranasal TID #30 mL 06/20/20 01/15/22 Rx %) nasal spray fluticasone propionate 50 2 spray intranasal DAILY #16 grams 09/26/20 01/15/22 Rx mcg/actuation nasal spray,suspension (Allergy Relief (fluticasone)) omeprazole 20 mg capsule,delayed See Rx Instructions .Route 05/16/21 01/15/22 Rx release .COMPLEX #90 caps Patient hx anesthesia problems: none Family hx anesthesia problems: none Results Review: All pre-operative results and documents have been reviewed as part of the pre-operative evaluation. COUNTS INCLUDE 234 BEDS AT THE [facility] Past Medical History Medical History (Updated 11/28/21 @ 12:08 by Juan Carlos Grullon PA-C) Asthma GERD (gastroesophageal reflux disease) Hyperlipidemia Hypothyroid KARMEN (obstructive sleep apnea) Surgical History Surgical History History of cataract extraction Family History Family History Mother Hypertension Family history of cardiovascular disease Cerebrovascular accident Father Family history of cardiovascular disease Family history of hepatitis Family history of congestive heart failure Grandparent Family history of cardiovascular disease Other Family history of lung cancer Family history of malignant neoplasm Family history of malignant neoplasm of ovary Social History Social History Smoking status: Never smoker Second hand tobacco smoke exposure: No Alcohol intake: current Alcohol use details: 1 drink monthly Substance use: never Substance use type: does not use Living arrangements: with family Gender identity (if verbalized by the patient): Female Sexual Orientation (if Verbalized by the Patient): Straight or Heterosexual Spiritual care concerns: No Anes - Eval Final PreProcedure Day of Procedure 01/15/22 08:08 Patient weight: normal Heart: regular rate and rhythm Lungs: clear to auscultation Airway: Mallampati scale class II Neurological: alert and oriented Last oral intake: >/= 8 hours ASA classification: III Emergent: no Anesthetic plan: proceed Anesthesia type and monitoring: general GIVS and standard monitoring Results Review: All pre-operative results and documents have been reviewed as part of the pre-operative evaluation. Informed Consent: The patient's anesthetic plan and its attendant risks and benefits were discussed with the patient/family/POA. Questions were solicited and answers provided to the satisfaction of the patient/family/POA.
--- NOTE | 2022-01-15 08:51 | SUR.OPER ---
EGD ended at 846, Colonoscopy began at 0853
[2022-01-15] MEDS: SIMETHICONE ORAL SUSPENSION 20 MG/0.3 ML 30 ML BOTTLE 0.6 ML IRRIGATION (08:59)
[2022-01-15 09:12] VITALS: BP 94/55; PULSE 75; RESP 24; O2SAT 98
[2022-01-15 09:22] VITALS: BP 107/61; PULSE 73; RESP 19; O2SAT 98
[2022-01-15 09:32] VITALS: BP 106/61; PULSE 70; RESP 17; O2SAT 100
== END 2022-01-15 09:45 | disposition home or self-care (01) ==
PROVIDERS: PCP Family Medicine; Visit Provider Internal Medicine Gastroenterology
PROC: 0DJ08ZZ Inspection of Upper Intestinal Tract, Via Natural or Artificial Opening Endoscopic (ICD-10-PCS; CPT 43235; principal; 2022-01-15 08:30)
DX: R63.4 Abnormal weight loss (principal); Z86.010 Personal history of colon polyps; K21.9 Gastro-esophageal reflux disease without esophagitis; K64.8 Other hemorrhoids; K57.30 Diverticulosis of large intestine without perforation or abscess without bleeding; K30 Functional dyspepsia
CPT/HCPCS: 45378; 43239; 87081; J2704; J7120

== ENCOUNTER 2022-01-22 09:46 | Outpatient (CLI) | payer MEDICARE, OTHER, SELFPAY ==
--- NOTE | ~2022-01-22 | US_ITS ---
EXAMINATION: US venous doppler LE RT DATE: 01/22/2022 10:39 INDICATION: Right lower limb swelling. TECHNIQUE: Grayscale ultrasound images without and with compression and Doppler ultrasound images of the right lower extremity veins were obtained. COMPARISON: None. FINDINGS: The visualized portions of right common femoral vein, profunda (deep) femoral vein, femoral vein, pop liteal vein, peroneal veins, posterior tibial veins, and greater saphenous vein outflow are patent. T here is a moderate-sized Prather's cyst. IMPRESSION: 1. No deep venous thrombosis. 2. Moderate-sized Prather's cyst. Reviewed, dictated and finalized at location A.
== END 2022-01-22 09:47 | disposition home or self-care (01) ==
PROVIDERS: PCP Physician Assistant; Visit Provider Physician Assistant
DX: M79.89 Other specified soft tissue disorders (principal); M71.21 Synovial cyst of popliteal space [Baker], right knee
CPT/HCPCS: 93971

== ENCOUNTER → 2022-05-08 15:39 | Outpatient (CLI) | payer MEDICARE, OTHER, SELFPAY ==
--- NOTE | ~2022-05-08 | XR_ITS ---
XR lumbar spine 2-3V DATE: 05/08/2022 16:35 INDICATION: Right leg pain TECHNIQUE: AP, lateral, coned lateral lumbosacral views COMPARISON: 02/03/2021 lumbar spine FINDINGS: There is osteopenia. There is slight anterolisthesis at L4-5 due to degenerative changes apophyseal joints. No fracture or bone destruction. Included lower thoracic and lumbar pedicles are intact. There is mild degenerative disc disease. The sacroiliac joints are intact. IMPRESSION: Osteopenia Mild degenerative disc disease Slight grade 1 anterolisthesis at L4-5 Reviewed, dictated and finalized at location A. ARE MANAGER
--- NOTE | ~2022-05-08 | XR_ITS ---
XR knee RT 3V 05/08/2022 16:35 Indication: Right knee pain Procedure: 3 views right knee Comparison: No prior studies for comparison. Findings: There is mild patellofemoral compartment osteoarthritis. No fracture, subluxation or disloc ation. No significant joint effusion. Impression: 1: Mild patellofemoral compartment osteoarthritis. Reviewed, dictated and finalized at location B. 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
== END ==
PROVIDERS: PCP Physician Assistant; Visit Provider Physician Assistant
DX: M25.561 Pain in right knee (principal); M79.604 Pain in right leg; M17.11 Unilateral primary osteoarthritis, right knee; M51.36 Other intervertebral disc degeneration, lumbar region; M85.88 Other specified disorders of bone density and structure, other site
CPT/HCPCS: 72100; 73562

== ENCOUNTER 2023-01-18 16:22 | Emergency (ER) | payer MEDICARE, OTHER, SELFPAY ==
--- NOTE | ~2023-01-18 | XR_ITS ---
EXAMINATION: XR soft tissue neck INDICATION: Left neck pain TECHNIQUE: Two views of the neck soft tissues are obtained. COMPARISON: 02/03/2021 FINDINGS: No radiopaque mass or foreign body identified. There is a questionable mild bulge in the la teral soft tissues of the neck on the left. Severe cervical spondylosis is noted. IMPRESSION: 1. Questionable bulge in the lateral soft tissues of the left neck. Further evaluation with nonemerge nt ultrasound is recommended. Reviewed, dictated and finalized at location F. IMPRESSION: 1. Questionable bulge in the lateral soft tissues of the left neck. Further corby luation with nonemergent ultrasound is recommended.
[2023-01-18 16:32] VITALS: BP 136/66; PULSE 74; RESP 16; TEMP 36.5; O2SAT 98
--- NOTE | 2023-01-18 16:33 | ED.GENADULT ---
HPI - General Adult General Chief complaint: Extremity Problem,Nontraumatic Stated complaint: L SHOULDER/NECK PAIN Time Seen by Provider: 01/18/23 16:33 Source: patient Mode of arrival: ambulatory Limitations: no limitations History of Present Illness HPI narrative: 82-year-old female presents with complaint of left-sided neck pain radiating into left shoulder ProAir in the past 4-5 days. Patient taking aspirin to treat pain without any relief. States that pain started to her left shoulder and is now radiated up to her left neck. Is causing stiffness. Pain is worse with movement. Patient also reports she saw her primary care provider 3 weeks ago due to a foreign body sensation to left side of neck with swallowing. Patient is scheduled to see GI for an endoscopy. All systems reviewed and negative except as noted above. Related Data Home Medications Medication Instructions Recorded Confirmed calcium carbonate 600 mg-vitamin 1 tablet PO DAILY 07/07/19 01/18/23 D3 5 mcg (200 unit) tablet (Calcium 600 + D(3)) cyclosporine 0.05 % eye drops in a 1 drp ophthalmic (eye) Q12H 07/07/19 01/18/23 dropperette (Restasis) denosumab 60 mg/mL subcutaneous 60 mg subcut [id number] 07/07/19 01/18/23 syringe (Prolia) Allergies Allergy/AdvReac Type Severity Reaction Status Date / Time No Known Allergies Allergy Verified 01/18/23 16:28 Review of Systems Review of Systems: CONSTITUTIONAL: Denies fever, chills, or sweats. EYES: Denies visual changes, redness, or discharge. ENT: Denies rhinorrhea, congestion, sore throat, or otalgia. CARDIOVASCULAR: Denies chest pain, palpitations, or edema. RESPIRATORY: Denies cough or dyspnea. GASTROINTESTINAL: Denies abdominal pain, nausea, vomiting, or diarrhea. GENITOURINARY: Denies dysuria or hematuria. SKIN: Denies rash or itching. MUSCULOSKELETAL: Denies back pain, joint pain, or myalgia. Reports left-sided neck pain radiating into left shoulder. NEUROLOGIC: Denies headache, numbness, or weakness. PSYCHIATRIC: Denies anxiety or depression. All other systems reviewed are negative, except as documented in HPI. [facility] Past Medical History Medical History (Updated 01/18/23 @ 17:14 by Julieta Mcmillan NP) Asthma GERD (gastroesophageal reflux disease) Hyperlipidemia Hypothyroid KARMEN (obstructive sleep apnea) Surgical History Surgical History History of cataract extraction Family History Family History Mother Hypertension Family history of cardiovascular disease Cerebrovascular accident Father Family history of cardiovascular disease Family history of hepatitis Family history of congestive heart failure Grandparent Family history of cardiovascular disease Other Family history of lung cancer Family history of malignant neoplasm Family history of malignant neoplasm of ovary Social History Social History Smoking status: Never smoker Second hand tobacco smoke exposure: No Alcohol intake: current Alcohol use details: 1 drink monthly Substance use: never Substance use type: does not use Lack of Transportation: No Lack of Food: Never True Current Housing: I Have Housing Concerned About Future Housing: No Difficulty Paying Gas/Electric Bills: No Difficulty Paying for Meds: No Currently Unemployed: No Education: High School Diploma/GED Difficulty w/ Childcare or Family Care: No Living arrangements: with family Occupation/Education: retired Gender identity (if verbalized by the patient): Female Sexual Orientation (if Verbalized by the Patient): Straight or Heterosexual Spiritual care concerns: No Comments At time of signature, agree with nursing past medical, surgical, social and family history. There is no relevant family history pertinent to the presenting
== END 2023-01-18 17:20 | disposition home or self-care (01) ==
PROVIDERS: Emergency Provider Nurse Practitioner Family; PCP Physician Assistant
DX: S16.1XXA Strain of muscle, fascia and tendon at neck level, initial encounter (principal); X58.XXXA Exposure to other specified factors, initial encounter; R22.1 Localized swelling, mass and lump, neck; J45.909 Unspecified asthma, uncomplicated; K21.9 Gastro-esophageal reflux disease without esophagitis; E78.5 Hyperlipidemia, unspecified; E03.9 Hypothyroidism, unspecified
CPT/HCPCS: 70360; 99213; G0463

== ENCOUNTER 2023-01-31 00:05 | Day surgery (SDC) | payer MEDICARE, OTHER, SELFPAY ==
[2023-01-21 13:59] VITALS: BMI 21.3
[2023-01-31 09:10] VITALS: BP 147/71; PULSE 75; RESP 20; TEMP 36.3; O2SAT 100; BMI 20.4
[2023-01-31] MEDS: LACTATED RINGERS 1,000 ML 150 ML IV CONT (09:32)
--- NOTE | 2023-01-31 09:41 | PM.HPGS ---
History of Present Illness History of Present Illness Consent: Risks, benefits, and alternatives have been discussed and questions answered. Patient agrees to proceed with procedure. Chief complaint: dysphagia Narrative: Lety Salinas is a 82 year old female Referred by Juan Carlos Grullon. patient reports that several weeks ago she had left neck and shoulder pain. She felt very tight in this area. Ultimately states that she had some difficulty swallowing. Patient subsequently referred for EGD. She states she has taken nonsteroidal anti-inflammatory agents with improvement of the shoulder pain and subsequent improvement of swallowing. Patient did have dysphagia an EGD 1 year ago was found to be unremarkable. Patient referred by primary care service for EGD today. Review of Systems Review of Systems: Review of systems noncontributory. [facility] Past Medical History Medical History (Updated 01/24/23 @ 11:36 by Juan Carlos Grullon PA-C) Asthma GERD (gastroesophageal reflux disease) Hyperlipidemia Hypothyroid KARMEN (obstructive sleep apnea) Surgical History Surgical History History of cataract extraction Family History Family History Mother Hypertension Family history of cardiovascular disease Cerebrovascular accident Father Family history of cardiovascular disease Family history of hepatitis Family history of congestive heart failure Grandparent Family history of cardiovascular disease Other Family history of lung cancer Family history of malignant neoplasm Family history of malignant neoplasm of ovary Social History Social History Smoking status: Never smoker Second hand tobacco smoke exposure: No Alcohol intake: current Alcohol use details: 1 drink monthly Substance use: never Substance use type: does not use Lack of Transportation: No Lack of Food: Never True Current Housing: I Have Housing Concerned About Future Housing: No Difficulty Paying Gas/Electric Bills: No Difficulty Paying for Meds: No Currently Unemployed: No Education: High School Diploma/GED Difficulty w/ Childcare or Family Care: No Living arrangements: with family Occupation/Education: retired Gender identity (if verbalized by the patient): Female Sexual Orientation (if Verbalized by the Patient): Straight or Heterosexual Spiritual care concerns: No Meds Home Medications and Allergies Home Medications Medication Instructions Recorded Confirmed Type calcium carbonate 600 mg-vitamin 1 tablet PO DAILY 07/07/19 01/31/23 History D3 5 mcg (200 unit) tablet (Calcium 600 + D(3)) cyclosporine 0.05 % eye drops in a 1 drp ophthalmic (eye) Q12H 07/07/19 01/31/23 History dropperette (Restasis) denosumab 60 mg/mL subcutaneous 60 mg subcut [id number] 07/07/19 01/31/23 History syringe (Prolia) omeprazole 20 mg capsule,delayed See Rx Instructions .Route 10/26/22 01/31/23 Rx release .COMPLEX #90 caps cyclobenzaprine 5 mg tablet 5 mg PO TID PRN muscle spasm #20 01/18/23 01/31/23 Rx tabs ibuprofen 600 mg tablet 600 mg PO Q6H PRN pain #30 tabs 01/18/23 01/31/23 Rx Allergies Allergy/AdvReac Type Severity Reaction Status Date / Time No Known Allergies Allergy Verified 01/31/23 09:09 Vital Signs Vital Signs - 24 hr 01/31/23 09:10 Temperature 97.4 F L Pulse Rate 75 Respiratory Rate 20 Blood Pressure 147/71 H Pulse Oximetry 100 Oxygen Delivery Room Air Exam Narrative: Physical exam reveals patient be alert. Vital signs stable. HEENT exam is unremarkable. She has good gag reflex. Patient is anicteric. Lungs are clear. Heart without murmur. Abdomen bowel sounds present soft nontender with no organomegaly. Assessment and Plan Assessment and plan (1) Dysphagia: Qualifier
--- NOTE | 2023-01-31 09:44 | WPDANESEPPF ---
Anes - Initial Pre Proc Eval Procedure: Operation Date: 01/31/23 10:30 Proposed Procedures p Esophagogastroduodenoscopy - Zay Peralta MD Date/Time: 01/31/23 09:44 Surgeon: Zay Perlata MD Pre Op Diagnosis: dysphagia Patient Data Age: 82 Gender: F Height: 1.5 m Weight: 45.8 kg Last Vital Signs Temp 97.4 F L 01/31/23 09:10 Pulse 75 01/31/23 09:10 Resp 20 01/31/23 09:10 BP 147/71 H 01/31/23 09:10 Pulse Ox 100 01/31/23 09:10 O2 Del Method Room Air 01/31/23 09:10 Allergies Allergy/AdvReac Type Severity Reaction Status Date / Time No Known Allergies Allergy Verified 01/31/23 09:09 Home Medications Medication Instructions Recorded Confirmed Type calcium carbonate 600 mg-vitamin 1 tablet PO DAILY 07/07/19 01/31/23 History D3 5 mcg (200 unit) tablet (Calcium 600 + D(3)) cyclosporine 0.05 % eye drops in a 1 drp ophthalmic (eye) Q12H 07/07/19 01/31/23 History dropperette (Restasis) denosumab 60 mg/mL subcutaneous 60 mg subcut [id number] 07/07/19 01/31/23 History syringe (Prolia) omeprazole 20 mg capsule,delayed See Rx Instructions .Route 10/26/22 01/31/23 Rx release .COMPLEX #90 caps cyclobenzaprine 5 mg tablet 5 mg PO TID PRN muscle spasm #20 01/18/23 01/31/23 Rx tabs ibuprofen 600 mg tablet 600 mg PO Q6H PRN pain #30 tabs 01/18/23 01/31/23 Rx Patient hx anesthesia problems: none Family hx anesthesia problems: none Results Review: All pre-operative results and documents have been reviewed as part of the pre-operative evaluation. [facility] Past Medical History Medical History (Updated 01/24/23 @ 11:36 by Juan Carlos Grullon PA-C) Asthma GERD (gastroesophageal reflux disease) Hyperlipidemia Hypothyroid KARMEN (obstructive sleep apnea) Surgical History Surgical History History of cataract extraction Family History Family History Mother Hypertension Family history of cardiovascular disease Cerebrovascular accident Father Family history of cardiovascular disease Family history of hepatitis Family history of congestive heart failure Grandparent Family history of cardiovascular disease Other Family history of lung cancer Family history of malignant neoplasm Family history of malignant neoplasm of ovary Social History Social History Smoking status: Never smoker Second hand tobacco smoke exposure: No Alcohol intake: current Alcohol use details: 1 drink monthly Substance use: never Substance use type: does not use Lack of Transportation: No Lack of Food: Never True Current Housing: I Have Housing Concerned About Future Housing: No Difficulty Paying Gas/Electric Bills: No Difficulty Paying for Meds: No Currently Unemployed: No Education: High School Diploma/GED Difficulty w/ Childcare or Family Care: No Living arrangements: with family Occupation/Education: retired Gender identity (if verbalized by the patient): Female Sexual Orientation (if Verbalized by the Patient): Straight or Heterosexual Spiritual care concerns: No Anes - Eval Final PreProcedure Day of Procedure 01/31/23 09:44 Patient weight: normal Heart: regular rate and rhythm Lungs: clear to auscultation Airway: Mallampati scale class II Neurological: alert and oriented Last oral intake: >/= 8 hours ASA classification: III Emergent: no Anesthetic plan: proceed Anesthesia type and monitoring: general GIVS and standard monitoring Results Review: All pre-operative results and documents have been reviewed as part of the pre-operative evaluation. Informed Consent: The patient's anesthetic plan and its attendant risks and benefits were discussed with the patient/family/POA. Questions were solicited and answers provided to the satisfaction of the patient/family/POA.
[2023-01-31 09:59] VITALS: BP 118/53; PULSE 67; RESP 17; O2SAT 100
[2023-01-31 10:09] VITALS: BP 132/55; PULSE 66; RESP 16; O2SAT 100
[2023-01-31 10:19] VITALS: BP 131/55; PULSE 69; RESP 16; O2SAT 100
== END 2023-01-31 10:31 | disposition home or self-care (01) ==
PROVIDERS: PCP Family Medicine; Visit Provider Internal Medicine Gastroenterology
PROC: 0DJ08ZZ Inspection of Upper Intestinal Tract, Via Natural or Artificial Opening Endoscopic (ICD-10-PCS; CPT 43235; principal; 2023-01-31 10:30)
DX: R13.10 Dysphagia, unspecified (principal); K21.9 Gastro-esophageal reflux disease without esophagitis; E78.5 Hyperlipidemia, unspecified; E03.9 Hypothyroidism, unspecified; J45.909 Unspecified asthma, uncomplicated; G47.33 Obstructive sleep apnea (adult) (pediatric)
CPT/HCPCS: 43235; J2704; J7120

== ENCOUNTER 2023-02-07 14:44 | Outpatient (CLI) | payer MEDICARE, OTHER, SELFPAY ==
--- NOTE | ~2023-02-07 | US_ITS ---
US soft tissue head and neck 02/07/2023 15:55 Indication: Localized swelling. Palpable mass. Procedure: High-resolution Limited ultrasound of the neck Comparison: No prior studies for comparison. Findings: Normal heterogeneous soft tissues without evidence for discrete solid or cystic mass. No ly mphadenopathy. Impression: 1: Normal soft tissue ultrasound of the neck. Reviewed, dictated and finalized at location B. Impression: 1: Normal soft tissue ultrasound of the neck.
== END 2023-02-07 14:45 | disposition home or self-care (01) ==
PROVIDERS: PCP Family Medicine; Visit Provider Physician Assistant
DX: R22.1 Localized swelling, mass and lump, neck (principal)
CPT/HCPCS: 76536

== ENCOUNTER 2023-03-19 13:00 | Outpatient (CLI) | payer MEDICARE, OTHER, SELFPAY ==
--- NOTE | ~2023-03-19 | XR_ITS ---
EXAMINATION: XR barium swallow modified DATE: 03/19/2023 13:34 INDICATION: Dysphagia. TECHNIQUE: The patient was given barium-containing material of multiple consistencies to swallow by nimco dangelo speech pathologist while the radiologist performed fluoroscopy. Dose-area product was 1.019 Gy-cm2 . 1.6 minutes fluoroscopy time FINDINGS: Oral Stage: Within functional limits Pharyngeal Phase: Trace penetration with first uncontrolled liquid per cup, not replicated Cervical/Esophageal Stage: Within functional limits IMPRESSION: Modified esophagram findings as above. Please [facility]. Reviewed, dictated and finalized at [facility]. Reviewed, dictated and finalized at location L. IMPRESSION: Modified esophagram findings as above. Please refer to the speech t herapy report for specific recommendations.
--- NOTE | 2023-03-19 14:25 | REHSTMBS ---
Assessment and note entered by Marli Sims, PHARMACY ACCOUNT DIRECTOR Modified Barium Swallow Evaluation Feeding Type Recommended Oral Food Consistency Regular, Level 7 Liquid Consistency Thin (0) ST Clinical Summary MODIFIED BARIUM SWALLOW STUDY This patient was seen for a Modified Barium Swallow study at the request of her physician. Patient reported that approximately six weeks ago, she began to feel that there was something in her throat and pointed to the left side of her neck. Additionally, she also reported that around the same time, she had a tooth removed and a new tooth implanted on the upper left side of her jaw and that since then, she has felt a sharpness in that area that was not present before the tooth implant. Patient did not state the two situations were related but did seem to indicate separately that they both occurrences started about six weeks ago. Patient stated that sometimes she will try coughing to clear the feeling of fullness in the left side of her throat and occasionally she will just cough up phlegm. Patient denied any actual difficulty swallowing either liquids or solids, and she reported no coughing or throat clearing while consuming oral presentations. The patient was viewed in the lateral position to the level of C5/C6. Patient was presented with thin liquid contrast medium per cup and per straw, pudding mixed with semi-solid contrast medium, and then fruit cocktail and manisha crackers both coated with the semi-solid material. On the first presentation of uncontrolled thin liquid per cup, patient exhibited trace penetration of material into the airway, clearing with the swallow, and then no additional penetration and no aspiration noted on either uncontrolled thin liquid per cup or per straw. She handled the pudding consistency along with the solid consistencies without any evidence of penetration or aspiration. Patient also exhibited no significant pharyngeal residue remaining in the pharynx after any of the swallows. After the session was complete, patient was offered water and was noted to cough/clear throat at that time. Results indicate this patient may remain on a
== END 2023-03-19 13:01 | disposition home or self-care (01) ==
PROVIDERS: PCP Physician Assistant; Visit Provider Otolaryngology
DX: R13.10 Dysphagia, unspecified (principal)
CPT/HCPCS: 92611

== ENCOUNTER 2023-03-21 08:00 | Outpatient (RCR) | payer MEDICARE, OTHER, SELFPAY ==
--- NOTE | 2023-02-06 08:49 | OPREHPOC ---
Outpatient Therapy Plan of Care This is a Multidisciplinary Plan of Care that may contain components documented by all disciplines (PT, OT, and ST.) PT Problem 1 PT Problem #1 Knowledge Deficit PT Goal 1 Goal 1* indep with HEP PT Problem 2 PT Problem #2 Pain PT Goal 1 Goal 1* pt report pain at worst of 4/10 2* self assessment functional score of Neck Disability Index score of 26% limitation in activity 3* pt report driving without any difficulty turning her head to see PT Problem 3 PT Problem #3 Impaired Flexibility PT Goal 1 Goal active cervical ROM in sittin* rotation R 35' 2* rotation L 35' no pain increase with active cervical 3* rotation R 4* rotation L PT Problem 4 PT Problem #4 Impaired Strength PT Goal 1 Goal 1* pt stand with good shoulder-cervical positioning 2* pt able to perform 20 reps of strengthening exercises in standing and supine positions
--- NOTE | 2023-02-06 08:49 | PTOPEVAL1 ---
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 ACTIVITY: prior to neck pain increase, indep with all home and self care tasks, drives; NOW- problems with driving Reported Pain Level Pain Score Self Report Additional Pain Score Comments pain range in the past week 0-7/10; R and L cervical hurts, at base of head increase pain: turn head to R and L, driving is hard to do decreased pain: hold head still, have pain med- use for sleep, heat is not a good sleeper in general--take pain meds to help sleep Assessment PT Clinical Summary Geno has the diagnosis of cervicalgia. She has a history of neck and back pain. Neck Disability Index score of 32% limitation in activity. She does not have any headaches, driving and rotation of her neck to the R and L is painful. With the evaluation, she has decreased cervical rotation to R and L and extension motions- all increase pain; shoulder motions are WNL and not painful; there are spasms and tenderness over cervical spine, with most tenderness over upper cervical. Skilled PT services are indicated for modalities to decrease spasms and pain; therapeutic exercises to increase cervical rotation ROM to R and L, and increase cervical-thoracic strength to improve posture and positioning of neck with education for HEP and self care/management of pain. Plan of Care Interventions Electrical Stimulation,Hot Pack/Cold Pack,Manual Therapy,Neuro Re-education,Patient Education,Ther
--- NOTE | 2023-03-01 10:53 | PTOPPROG ---
Assessment and note entered by Penny Torres, PT Evaluation Information Assessment Status Progress Diagnosis cervicalgia Onset 01-22-23 Subjective Information neck feels better and is moving better; have been doing the exercises at home; like the stim for my neck; pain range of 0-6/10 R & L neck Assessment PT Clinical Summary Pat has received 7 PT sessions. Compared to the initial evaluation: pain rating at the worst from 7 to 6/10; Self assessment with Neck Disability Index from 32 to 14% limitation in activity; cervical rotation R and L increased ROM but still increase pain; cervical flexion does not increase pain; increase cervical- thoracic strength; able to decrease pain with manual therapy and electrical stim. Education provided for home exercises and posture. The goals were partially achieved. Continue PT treatments. Plan of Care Interventions Electrical Stimulation,Hot Pack/Cold Pack,Manual Therapy,Neuro Re-education,Patien Education,Therapeutic Activities,Therapeutic Exercise,Ultrasound,dry needling, Other Other Interventions taping, IASTM PT Services Indicated Yes Treatment Frequency and 2x/ for 3 weeks Duration These treatments will address the objective and functional deficits as defined above. The patient will be advanced safely and appropriately in order for the patient to progress towards his/her prior level of function. Additional exercises will be introduced and as well as a comprehensive home exercise program upon discharge, if needed, ?to ensure carryover of functional gains achieved in the clinic. This treatment plan has been reviewed and agreement upon by the patient.
--- NOTE | 2023-03-01 10:54 | OPREHPOC ---
Outpatient Therapy Plan of Care This is a Multidisciplinary Plan of Care that may contain components documented by all disciplines (PT, OT, and ST.) PT Problem 1 PT Problem #1 Knowledge Deficit PT Goal 1 Goal 1* indep with HEP Progress Met Comment 03-01-23 progress continue towards goal to progress HEP PT Problem 2 PT Problem #2 Pain PT Goal 1 Goal 1* pt report pain at worst of 4/10 2* self assessment functional score of Neck Disability Index score of 26% limitation in activity 3* pt report driving without any difficulty turning her head to see Progress Partially Met Comment 03-01-23 progress met goal #2 continue towards goals PT Problem 3 PT Problem #3 Impaired Flexibility PT Goal 1 Goal active cervical ROM in sittin* rotation R 35' 2* rotation L 35' no pain increase with active cervical 3* rotation R 4* rotation L Progress Partially Met Comment 03-01-23 progress met goals 1 & 2; continue towards goals 3 & 4 PT Problem 4 PT Problem #4 Impaired Strength PT Goal 1 Goal 1* pt stand with good shoulder-cervical positioning 2* pt able to perform 20 reps of strengthening exercises in standing and supine positions Progress Partially Met Comment 03-01-23 progress continue towards goals
--- NOTE | 2023-03-21 08:49 | PTOPDC ---
Assessment and note entered by Penny Torres, PT Evaluation Information Assessment Status Discharge Diagnosis cervicalgia Onset 01-22-23 Subjective Information am doing better, shoulders not as tight; is driving again--for awhile did not drive; is doing everything she usually does around the house; doing the exercises at home; watching her posture Reported Pain Level Pain Score Self Report Additional Pain Score Comments pain range in the past week 0-5/10; pain hits suddenly in neck; shoulders are not as tight; points to R and L occipital increase pain: move head a certain way-sharp pain at base of skull; when tired decrease pain: rest, heating pad- about 2x/day; muscle cream; is not taking any pain meds; reinforced rest during day with head supported on recliner to relax neck muscles; she states she tends to keep going and not rest; Assessment PT Clinical Summary Geno has received 12 PT sessions. Compared to the last progress report: pain rating at the worst from 6 to 5/10 and reports of muscles in shoulders not as tight; has returned to driving; cervical rotation active ROM to R has increased and L is the same-- both increase her pain but not as bad ; increase strength of [id number] complex and improved posture awareness with self correction; self assessment with the Neck Index- score is worse-- last time she accidently marked that she could lift heavy weights and today marked light weights only. Education completed for HEP and posture/ positioning of her neck. The goals were partially achieved. Discharge PT services. She is to continue with her home exercises and pain management. Plan of Care PT Services Indicated No
== END 2023-03-21 12:22 | disposition home or self-care (01) ==
LOC: ANHPT 08:00
PROVIDERS: PCP Family Medicine; Visit Provider Physician Assistant
DX: M54.2 Cervicalgia (principal)
CPT/HCPCS: 97014; 97110; 97112; 97140; 97161; 97530; G0283

== ENCOUNTER 2023-06-23 11:25 | Emergency (ER) | payer MEDICARE, OTHER, SELFPAY ==
[2023-06-23 11:31] VITALS: BP 129/64; PULSE 74; RESP 16; TEMP 36.2; O2SAT 99
--- NOTE | 2023-06-23 12:14 | ED.GENADULT ---
HPI - General Adult General Chief complaint: Upper Respiratory Infection Stated complaint: COUGH/SORE THROAT/RSV EXPOSURE Source: patient Mode of arrival: ambulatory Limitations: no limitations History of Present Illness HPI narrative: Patient presents for evaluation of sinus congestion and drainage for the last 2 weeks. She reports a thick mucopurulent discharge from the nares. She denies any fever, chills, nausea, vomiting, cough, shortness of breath. Her is currently hospitalized for RSV. She has a history of dry eyes and has not been taking any OTC meds as she was concerned it may make her eyes more dry. Related Data Home Medications Medication Instructions Recorded Confirmed calcium carbonate 600 mg-vitamin 1 tablet PO DAILY 07/07/19 06/23/23 D3 5 mcg (200 unit) tablet (Calcium 600 + D(3)) cyclosporine 0.05 % eye drops in a 1 drp ophthalmic (eye) Q12H 07/07/19 06/23/23 dropperette (Restasis) denosumab 60 mg/mL subcutaneous 60 mg subcut [id number] 07/07/19 06/23/23 syringe (Prolia) fluorometholone 0.1 % eye 1 drp ophthalmic (eye) DIRECTED 06/23/23 06/23/23 drops,suspension Allergies Allergy/AdvReac Type Severity Reaction Status Date / Time No Known Allergies Allergy Verified 06/23/23 11:55 Review of Systems Review of Systems: CONSTITUTIONAL: Denies fever, chills, or sweats. EYES: Reports chronic dry eyes, not worse than baseline. Reports sinus congestion and thick mucopurulent discharge from nares. ENT: Denies rhinorrhea, congestion, sore throat, or otalgia. CARDIOVASCULAR: Denies chest pain, palpitations, or edema. RESPIRATORY: Denies cough or dyspnea. GASTROINTESTINAL: Denies abdominal pain, nausea, vomiting, or diarrhea. GENITOURINARY: Denies dysuria or hematuria. SKIN: Denies rash or itching. MUSCULOSKELETAL: Denies back pain, joint pain, or myalgia. NEUROLOGIC: Denies headache, numbness, dizziness, or weakness. PSYCHIATRIC: Denies anxiety or depression. [facility] Past Medical History Medical History Asthma GERD (gastroesophageal reflux disease) Hyperlipidemia Hypothyroid KARMEN (obstructive sleep apnea) Surgical History Surgical History History of cataract extraction Family History Family History Mother Hypertension Family history of cardiovascular disease Cerebrovascular accident Father Family history of cardiovascular disease Family history of hepatitis Family history of congestive heart failure Grandparent Family history of cardiovascular disease Other Family history of lung cancer Family history of malignant neoplasm Family history of malignant neoplasm of ovary Social History Social History Smoking status: Never smoker Second hand tobacco smoke exposure: No Alcohol intake: current Alcohol use details: maybe 3 or 4 a year Substance use: never Substance use type: does not use Lack of Transportation: No Lack of Food: Never True Current Housing: I Have Housing Concerned About Future Housing: No Difficulty Paying Gas/Electric Bills: No Difficulty Paying for Meds: No Currently Unemployed: No Education: High School Diploma/GED Difficulty w/ Childcare or Family Care: No Living arrangements: with family Occupation/Education: retired Gender identity (if verbalized by the patient): Female Sexual Orientation (if Verbalized by the Patient): Straight or Heterosexual Spiritual care concerns: No Exam Narrative: GENERAL: Well-appearing, well-nourished, and in no acute distress. HEAD: Normocephalic, atraumatic. EYES: PERRLA and EOMI. ENT: Nares clear, no rhinorrhea or epistaxis. Mucous membranes moist. Oropharynx without tonsillar hypertrophy exudate or other lesions. Bilateral
== END 2023-06-23 12:16 | disposition home or self-care (01) ==
PROVIDERS: Emergency Provider Nurse Practitioner; PCP Family Medicine
DX: J01.90 Acute sinusitis, unspecified (principal); B96.89 Other specified bacterial agents as the cause of diseases classified elsewhere; E78.5 Hyperlipidemia, unspecified; E03.9 Hypothyroidism, unspecified; Z79.899 Other long term (current) drug therapy
CPT/HCPCS: 87081; 87880; 99213; G0463

== ENCOUNTER 2023-07-25 16:02 | Emergency (ER) | payer MEDICARE, OTHER, SELFPAY ==
--- NOTE | 2023-07-25 16:11 | ED.GENADULT ---
HPI - General Adult General Chief complaint: Upper Respiratory Infection Stated complaint: Covid Test Source: patient, RN notes reviewed and old records reviewed Mode of arrival: ambulatory Limitations: no limitations History of Present Illness HPI narrative: 83-year-old female presents to [facility] with complaints of myalgia, fatigue burning eyes, chills that started yesterday. Patient states has been has COVID so she is wanting tested and to be given Paxlovid if positive. Patient denies cough, chest pain, dizziness, weakness, shortness of breath. Related Data Home Medications Medication Instructions Recorded Confirmed calcium carbonate 600 mg-vitamin 1 tablet PO DAILY 07/07/19 07/25/23 D3 5 mcg (200 unit) tablet (Calcium 600 + D(3)) cyclosporine 0.05 % eye drops in a 1 drp ophthalmic (eye) Q12H 07/07/19 07/25/23 dropperette (Restasis) denosumab 60 mg/mL subcutaneous 60 mg subcut [id number] 07/07/19 07/25/23 syringe (Prolia) fluorometholone 0.1 % eye 1 drp ophthalmic (eye) DIRECTED 06/23/23 07/25/23 drops,suspension Allergies Allergy/AdvReac Type Severity Reaction Status Date / Time No Known Allergies Allergy Verified 07/25/23 16:21 Review of Systems Constitutional: Constitutional: Reports no additional constitutional complaints, Reports body ache(s), Reports chills, Reports fatigue, Denies fever(s) and Denies headache(s) Eyes: Eyes: Reports no additional eye complaints and Denies blurry vision ENT: Reports system reviewed and no additional complaints, except as documented, Denies vertigo, Denies dizziness, Denies ear discharge, Denies otalgia, Denies facial pain, Denies headache(s), Denies nasal congestion, Denies nasal discharge, Denies sinus pain, Denies sinus pressure and Denies sore throat Cardiovascular: Cardiovascular: Reports no additional cardiovascular complaints, Denies chest pain, Denies chest pain at rest, Denies rapid heart rate and Denies dyspnea Respiratory: Respiratory: Reports no additional respiratory complaints, Denies chest congestion, Denies cough, Denies pain on inspiration, Denies pain with cough and Denies dyspnea Gastrointestinal: Gastrointestinal: Denies abdominal pain, Denies diarrhea, Denies nausea and Denies vomiting Integumentary/Breasts: Skin/Breast: Denies rash Neurologic: Reports system reviewed and no additional complaints, except as documented, Denies vertigo, Denies dizziness and Reports headache(s) Endocrine: Endocrine: Denies fatigue [facility] Past Medical History Medical History Asthma GERD (gastroesophageal reflux disease) Hyperlipidemia Hypothyroid KARMEN (obstructive sleep apnea) Surgical History Surgical History History of cataract extraction Family History Family History Mother Hypertension Family history of cardiovascular disease Cerebrovascular accident Father Family history of cardiovascular disease Family history of hepatitis Family history of congestive heart failure Grandparent Family history of cardiovascular disease Other Family history of lung cancer Family history of malignant neoplasm Family history of malignant neoplasm of ovary Social History Social History Smoking status: Never smoker Second hand tobacco smoke exposure: No Alcohol intake: current Alcohol use details: maybe 3 or 4 a year Substance use: never Substance use type: does not use Lack of Transportation: No Lack of Food: Never True Current Housing: I Have Housing Concerned About Future Housing: No Difficulty Paying Gas/Electric Bills: No Difficulty Paying for Meds: No Currently Unemployed: No Education: High School Diploma/GED Difficulty w/ Childcare or Family Care: No Living arrangements: with family
[2023-07-25 16:20] VITALS: BP 128/73; PULSE 80; RESP 16; TEMP 37.7; O2SAT 100
== END 2023-07-25 16:36 | disposition home or self-care (01) ==
PROVIDERS: Emergency Provider Registered Nurse; PCP Family Medicine
DX: B34.9 Viral infection, unspecified (principal); E78.5 Hyperlipidemia, unspecified; E03.9 Hypothyroidism, unspecified; J45.909 Unspecified asthma, uncomplicated; Z79.899 Other long term (current) drug therapy; Z20.822 Contact with and (suspected) exposure to COVID-19
CPT/HCPCS: 87426; 87804; 99213; G0463

== ENCOUNTER 2023-07-27 15:38 | Emergency (ER) | payer MEDICARE, OTHER, SELFPAY ==
--- NOTE | 2023-07-27 15:58 | ECG_ITS ---
Measurements Intervals [place] Rate: 175 P: [place]: 0 QRS: 57 QRSD: 76 T: 73 QT: 253 QTc: 433 Interpretive Statements ATRIAL FIBRILLATION WITH RAPID VENTRICULAR RESPONSE NONSPECIFIC ST & T-WAVE ABNORMALITY ABNORMAL ECG COMPARED TO ECG 02/03/2021 12:16:27 ATRIAL FLUTTER NOW PRESENT T-WAVE ABNORMALITY NOW PRESENT Electronically Signed On 07-28-2023 8:16:52 BUSINESS SOLUTIONS ARCHITECT by Lisandro Brothers M.D.
[2023-07-27 16:10] VITALS: BP 127/111; PULSE 175; RESP 18; TEMP 36.8; O2SAT 100
--- NOTE | 2023-07-27 16:37 | ED.URI ---
HPI - URI/Sore Throat General Chief Complaint: Upper Respiratory Infection Stated Complaint: FEVER/CHILLS/DECREASED APPETITE/TIRED Time Seen by Provider: 07/27/23 16:10 Source: patient Mode of arrival: ambulatory Limitations: no limitations History of Present Illness HPI Narrative: 83-year-old female presents with complaint of nasal congestion, cough, chills, fatigue for 3 days. Patient states her is positive for COVID. Patient was seen here 2 days ago and had negative COVID test. Was told to return in 48 hours to be rechecked for COVID. No chest pain or shortness of breath. Patient's heart rate 170 in triage. No history of AFib. All systems reviewed and negative except as noted above. Related Data Home Medications Medication Instructions Recorded Confirmed calcium carbonate 600 mg-vitamin 1 tablet PO DAILY 07/07/19 07/25/23 D3 5 mcg (200 unit) tablet (Calcium 600 + D(3)) cyclosporine 0.05 % eye drops in a 1 drp ophthalmic (eye) Q12H 07/07/19 07/25/23 dropperette (Restasis) denosumab 60 mg/mL subcutaneous 60 mg subcut [id number] 07/07/19 07/25/23 syringe (Prolia) fluorometholone 0.1 % eye 1 drp ophthalmic (eye) DIRECTED 06/23/23 07/25/23 drops,suspension Allergies Allergy/AdvReac Type Severity Reaction Status Date / Time No Known Allergies Allergy Verified 07/25/23 16:21 Review of Systems Review of Systems: CONSTITUTIONAL: Denies fever, chills, or sweats. Reports fatigue. EYES: Denies visual changes, redness, or discharge. ENT: Reports rhinorrhea, congestion. Denies sore throat, or otalgia. CARDIOVASCULAR: Denies chest pain, palpitations, or edema. RESPIRATORY: Reports cough. Denies dyspnea. GASTROINTESTINAL: Denies abdominal pain, nausea, vomiting, or diarrhea. GENITOURINARY: Denies dysuria or hematuria. SKIN: Denies rash or itching. MUSCULOSKELETAL: Denies back pain, joint pain, or myalgia. NEUROLOGIC: Denies headache, numbness, or weakness. PSYCHIATRIC: Denies anxiety or depression. All other systems reviewed are negative, except as documented in HPI. [facility] Past Medical History Medical History Asthma GERD (gastroesophageal reflux disease) Hyperlipidemia Hypothyroid KARMEN (obstructive sleep apnea) Surgical History Surgical History History of cataract extraction Family History Family History Mother Hypertension Family history of cardiovascular disease Cerebrovascular accident Father Family history of cardiovascular disease Family history of hepatitis Family history of congestive heart failure Grandparent Family history of cardiovascular disease Other Family history of lung cancer Family history of malignant neoplasm Family history of malignant neoplasm of ovary Social History Social History Smoking status: Never smoker Second hand tobacco smoke exposure: No Alcohol intake: current Alcohol use details: maybe 3 or 4 a year Substance use: never Substance use type: does not use Lack of Transportation: No Lack of Food: Never True Current Housing: I Have Housing Concerned About Future Housing: No Difficulty Paying Gas/Electric Bills: No Difficulty Paying for Meds: No Currently Unemployed: No Education: High School Diploma/GED Difficulty w/ Childcare or Family Care: No Living arrangements: with family Occupation/Education: retired Gender identity (if verbalized by the patient): Female Sexual Orientation (if Verbalized by the Patient): Straight or Heterosexual Spiritual care concerns: No Course Course Level of Care: Express Care Visit Vital Signs Vital signs: Vital Signs Temperature 36.8 C 07/27/23 16:10 Pulse Rate 175 H 07/27/23 16:10 Respiratory Rate 18 07/27/23 16:10 Blo
== END 2023-07-27 16:38 | disposition short-term general hospital (02) ==
PROVIDERS: Emergency Provider Nurse Practitioner Family; PCP Family Medicine
DX: I48.91 Unspecified atrial fibrillation (principal); U07.1 COVID-19; J45.909 Unspecified asthma, uncomplicated; K21.9 Gastro-esophageal reflux disease without esophagitis; E78.5 Hyperlipidemia, unspecified; E03.9 Hypothyroidism, unspecified
CPT/HCPCS: 87426; 93005; 99215; G0463

== ENCOUNTER 2023-07-27 16:39 | Inpatient (IN) | payer MEDICARE, OTHER, SELFPAY ==
[2023-07-27] VITALS (17 sets, daily range): BP systolic 93–140; BP diastolic 59–105; PULSE 98–178; RESP 11–24; TEMP 36.6; O2SAT 97–100; BMI 18.3
--- NOTE | ~2023-07-27 | CT_ITS ---
Clinical Indication: Pulmonary embolus CT Scan of the Chest with Contrast: Technique: Contiguous sections were acquired throughout the chest after intravenous administration of 100 cc of Omnipaque 350. Dose reduction technique was used on this scan by utilizing automated expos ure control and iterative reconstruction technique. The dose-length product (DLP) was 165.92 mGy-cm. Findings: There is no evidence of any significant mediastinal, hilar or axillary lymphadenopathy. There are sev eral segmental level pulmonary emboli in the right upper and right lower lobes. No definite left-side d pulmonary embolus seen. No evidence of right heart strain.. There is no evidence of aortic dissecti on or aneurysm. There is no evidence of pleural or pericardial effusion. The lungs are clear. No pulmonary nodules or infiltrates are noted. Images through the upper abdomen reveal no abnormalities. Impression: Several segmental level pulmonary emboli in the right upper and lower lobes. Clear lungs. Case discussed with Dr. Rivera at the time of this reading. Reviewed, dictated and finalized at location . MACHINE OPERATOR Impression: Several segmental level pulmonary emboli in the right upper and lower lobes. Clear lungs. Case discussed with Dr. Rivera at the time of this reading.
--- NOTE | ~2023-07-27 | XR_ITS ---
Portable chest x-ray Comparison: 07/16/2019 Clinical History: Atrial fibrillation Findings: Lungs are clear, without focal consolidation or pleural effusion. Possible COPD. Cardiome diastinal silhouette is stable. Bones and soft tissues are unremarkable. Impression: Clear lungs. Possible COPD. Reviewed, dictated and finalized at [facility]. ER LIFT OPERATOR Impression: Clear lungs. Possible COPD.
--- NOTE | ~2023-07-27 | US_ITS ---
EXAMINATION: US venous doppler [facility] DATE: 07/29/2023 13:08 INDICATION: Pulmonary embolism. TECHNIQUE: Grayscale ultrasound images without and with compression and Doppler ultrasound images of the bilateral lower extremity veins were obtained. COMPARISON: Ultrasound 01/22/2022 FINDINGS: The visualized portions of right common femoral vein, profunda (deep) femoral vein, femoral vein, pop liteal vein, peroneal veins, posterior tibial veins, and greater saphenous vein outflow are patent. The visualized portions of left common femoral vein, profunda femoral vein, femoral vein, popliteal v ein, peroneal veins, posterior tibial veins, and greater saphenous vein outflow are patent. IMPRESSION: 1. No deep venous thrombosis. Reviewed, dictated and finalized at location A. ITURE ASSEMBLER AND INSTALLER
--- NOTE | 2023-07-27 16:03 | ECG_ITS ---
Measurements Intervals [place] Rate: 180 P: [place]: 0 QRS: 49 QRSD: 78 T: 260 QT: 212 QTc: 367 Interpretive Statements ATRIAL FIBRILLATION WITH RAPID VENTRICULAR RESPONSE ST DEVIATION AND MODERATE T-WAVE ABNORMALITY, CONSIDER INFEROLATERAL ISCHEMIA [-0.1+ mV T WAVE IN II/aVF] ABNORMAL ECG INTERPRETATION BASED ON A DEFAULT AGE OF 40 YEARS COMPARED TO ECG 02/03/2021 12:16:27 ATRIAL FIBRILLATION NOW PRESENT Electronically Signed On 07-28-2023 10:25:09 DOPE WORKER by Lisandro Brothers M.D.
--- NOTE | 2023-07-27 16:43 | ECG_ITS ---
Measurements Intervals [place] Rate: 117 P: ID: 0 QRS: 61 QRSD: 77 T: 53 QT: 311 QTc: 435 Interpretive Statements ATRIAL FIBRILLATION WITH RAPID VENTRICULAR RESPONSE ABNORMAL ECG COMPARED TO ECG 07/27/2023 16:48:11 NO SIGNIFICANT CHANGE Electronically Signed On 07-28-2023 8:19:00 DYEING MACHINE TENDER by Lisandro Brothers M.D.
--- NOTE | 2023-07-27 16:49 | ED.ARRPALP ---
HPI - Arrhythmia/Palpitations General Chief Complaint: Arrhythmia/Palpitations Stated Complaint: new afib RVR Time Seen by Provider: 07/27/23 16:49 Source: patient History of Present Illness HPI narrative: 83 YEARS OLD WHITE FEMALE CAME FROM URGENT CARE WITH EKG SHOWING AFIB WITH RVR. PATIENT WENT TO URGENT CARE TODAY BECAUSE SHE BEEN FEELING WEAK AND TIRED CONSTANT RUNNY NOSE, POSTNASAL DISCHARGE NASAL CONGESTION SINCE MAY 2023. PATIENT MAIN COMPLAINT FEELING JUST TIRED AND EXHAUSTED. SHE DENIES ANY CHEST PAIN SHORTNESS OF BREATH LIGHTHEADEDNESS HEADACHE BACK PAIN OR ABDOMINAL PAIN OR HISTORY OF AFIB. PATIENT DOES NOT TAKE ANTI-PLATELET OR ANTICOAGULANT MEDICATION, HISTORY OF GERD. PATIENT REPORTED THAT HER RECENTLY TESTED POSITIVE FOR COVID. PATIENT DENIES ANY SHORTNESS OF BREATH OR COUGHING. PATIENT BEEN USING URGENT CARE PATIENT LOST HER FAMILY PHYSICIAN RECENTLY AND HAS BEEN USING THE URGENT CARE A FAMILY PHYSICIAN OVER THE LAST 3 MONTHS. Related Data Home Medications Medication Instructions Recorded Confirmed calcium carbonate 600 mg-vitamin 1 tablet PO DAILY 07/07/19 07/27/23 D3 5 mcg (200 unit) tablet (Calcium 600 + D(3)) cyclosporine 0.05 % eye drops in a 1 drp ophthalmic (eye) Q12H 07/07/19 07/27/23 dropperette (Restasis) denosumab 60 mg/mL subcutaneous 60 mg subcut [id number] 07/07/19 07/27/23 syringe (Prolia) Allergies Allergy/AdvReac Type Severity Reaction Status Date / Time No Known Allergies Allergy Verified 07/27/23 16:52 Review of Systems Review of Systems: All systems reviewed & are unremarkable except as noted in HPI and below PMFSH Past Medical History Medical History Asthma Diverticulitis Gastroesophageal reflux disease Hyperlipidemia Hypothyroidism Obstructive sleep apnea Osteoporosis Surgical History Surgical History History of bilateral cataract extraction History of colonoscopy with polypectomy Family History Family History Mother Family history of cardiovascular disease Hypertension Cerebrovascular accident Father Family history of cardiovascular disease Family history of hepatitis Family history of congestive heart failure Acute myocardial infarction Grandparent Family history of cardiovascular disease Other Family history of lung cancer Family history of malignant neoplasm Family history of malignant neoplasm of ovary Social History Social History Social History: Surrogate medical decision maker: Castro Salinas, spouse. Code status: Full code. Smoking status: Never smoker Second hand tobacco smoke exposure: Yes Alcohol intake: never Alcohol use details: maybe 3 or 4 a year Substance use: never Substance use type: does not use Do You Feel Safe in your Home?: Yes Lack of Transportation: No Lack of Food: Never True Current Housing: I Have Housing Concerned About Future Housing: No Difficulty Paying Gas/Electric Bills: No Difficulty Paying for Meds: No Currently Unemployed: No Education: High School Diploma/GED Difficulty w/ Childcare or Family Care: No Living arrangements: with family Occupation/Education: retired Spiritual care concerns: No Exam Narrative: GENERAL APPEARANCE: WELL-DEVELOPED, WELL-NOURISHED SKIN: NORMAL COLOR HEAD: NORMOCEPHALIC, NONTRAUMATIC EYES: CLEAR CONJUNCTIVA ENT: OROPHARYNX NORMAL, EARS NORMAL, NOSE NORMAL NECK: SUPPLE, NONTENDER CHEST AND RESPIRATORY: AIRWAY PATENT, NO RESPIRATORY DISTRESS, NO ACCESSORY MUSCLE USE HEART: TACHYCARDIA, IRREGULAR IRREGULARITY ABDOMEN: SOFT, NONTENDER, NO ORGANOMEGALY, QUIET BOWEL SOUNDS VASCULAR: NORMAL PERIPHERAL PULSES, NORMAL CAPILLARY REFILL. MUSCULOSKELETAL: NORMAL RANGE OF MOTION, NONTENDER BACK N
[2023-07-27] MEDS: dilTIAZem 100 MG/100 ML 100 MG/100 ML BAG IV CONT (16:54)
[2023-07-27] MEDS: dilTIAZem HCl INJ 25 MG/5 ML VIAL 10 MG IV PUSH (16:54)
[2023-07-27 17:06] LABS: Basophils Absolute Auto 0.1 K/mm3 (0.0-0.1); Basophils Percent Auto 0.6 % (0.2-1.2); Eosinophils Percent Auto 0.2 % (0-4.4); Hematocrit 39.1 % (37.0-47.0); Hemoglobin 12.9 g/dL (12.0-15.0); Immature Granulocyte Absolute 0.02 K/mm3 (0.00-0.031); Immature Granulocyte Percent A 0.2 % (0-0.5); Immature Platelet Fraction Pct 7.2 % (0.9-11.2); Lymphocytes Absolute Auto 0.84 K/mm3 (0.9-3.2); Mean Corpuscular Hemoglobin 30.1 pg (26-34); Mean Corpuscular Volume 91.1 fl (80-100); Mean Platelet Volume 11.4 fl (7.4-10.4); Monocytes Absolute Auto 1.4 K/mm3 (0.1-0.6); Monocytes Percent Auto 16.4 % (2.6-8.5); Neutrophils Absolute Auto 6.1 K/mm3 (1.3-6.7); Neutrophils Percent Auto 72.6 % (45.5-73.1); Platelet Count Result 133 k/mm3 (150-375); Red Blood Count 4.29 M/mm3 (4.2-5.4); Red Cell Distribution Width 14.6 % (11.5-14.5); White Blood Count 8.4 K/mm3 (4.5-10.0)
[2023-07-27] MEDS: ENOXAPARIN 60 MG/0.6 ML SYRINGE 50 MG SUB-Q (17:10)
[2023-07-27 17:18] LABS: Alanine Aminotransferase 14 U/L (6-35); Albumin Level 3.7 g/dL (3.5-5.1); Alkaline Phosphatase 70 U/L (38-126); Anion Gap 11 mmol/L (8-16); Aspartate Amino Transferase 27 U/L (14-36); Bilirubin,Total 0.7 mg/dL (0.2-1.3); Blood Urea Nitrogen 24 mg/dL (7-17); Calcium 8.8 mg/dL (8.4-10.2); Carbon Dioxide 21 mmol/L (22-30); Chloride 102 mmol/L (98-107); Estimated Glomerular Filt Rate 53; Glucose 105 mg/dL (65-110); Potassium 4.1 mmol/L (3.4-5.0); Sodium 134 mmol/L (137-145)
[2023-07-27 17:22] LABS: INR 1.1; Prothrombin Time 14.9 Seconds (11.1-14.7)
[2023-07-27 17:29] LABS: NT Pro B Type Natriuretic Pept 123 pg/mL (19.9-100); Troponin I < 0.012 ng/mL (0.000-0.034)
[2023-07-27 17:54] LABS: Influenza A QL RT-PCR Negative (Negative); Influenza B QL RT-PCR Negative (Negative); RSV RNA, RT-PCR Negative (Negative); SARS-CoV-2 RNA PCR Positive (Negative)
[2023-07-27 17:57] LABS: Appearance Urine Clear (Clear); Bacteria Urine None Seen /hpf; Bilirubin Urine Negative (Negative); Blood Urine 1+ (Negative); Color Urine Yellow (Yellow); Glucose Urine UA Negative (Negative); Ketones Urine 1+ mg/dL (Negative); Leukocyte Esterase Ur 1+ LEU/UL (Negative); Need Manual Microscopic Reviewed; Nitrate Urine Negative (Negative); Protein Urine Trace mg/dL (Negative); RBC Urine 0-2 /hpf (0-2); Specific Grav Ur 1.008 (1.001-1.035); Squamous Epithelial Cell Urine None seen /hpf (Few); Urobilinogen Urine 0.2 mg/dL (<2.0); WBC Urine 0-5 /hpf; pH Urine 5.5 (5.0-9.0)
[2023-07-27 18:00] LABS: Add Urine Microscopic? YES
--- NOTE | 2023-07-27 19:00 | PC.NURSE ---
this rn assumed care of patient. this rn took patient report from liam jade.
--- NOTE | 2023-07-27 19:15 | PC.NURSE ---
Per EDP Dr. Rivera pt is to receieve 5mg IV push of diltiezam. pt vitals at this time are 166 HR in Afib, 97% on room air, 21 RR, and blood pressure of 110/77. this rn used closed loop communication to confirm medication/ dose/ route/ pt.
[2023-07-27] MEDS: dilTIAZem HCl INJ 25 MG/5 ML VIAL 5 MG IV PUSH (19:19)
--- NOTE | 2023-07-27 19:41 | PM.IMHP ---
H&P: HPI History of Present Illness Date/Time: 07/27/23 22:00 Chief Complaint: Atrial fibrillation with rapid ventricular response. Narrative: This is an 83-year-old female with asthma, obstructive sleep apnea, hypercholesterolemia, osteoporosis, and gastroesophageal reflux disease who presented to the emergency department via EMS from urgent care for evaluation after she was found to have new onset atrial fibrillation with rapid ventricular response. The patient provides the following history. She and her have not been feeling well for several days with symptoms to include nasal congestion, cough, chills, and fatigue. They were seen at urgent care several days ago where her tested positive for COVID however she was negative at that time. She was told to return for repeat testing in 48 hours if her symptoms were not improving. Her symptoms have not improved and in fact she is feeling more short of breath and she returned for repeat COVID testing. She was sent to the ED after she was found to be in rapid atrial fibrillation. This is a new diagnosis for the patient. She has no chest pain, palpitations, fluttering, or sensations of racing heart. She denies significant alcohol and caffeine use. In the ED: She was afebrile on arrival. Blood pressures have been stable however when she was started on a diltiazem drip they did drop a little bit but have remained stable at the lower end of normal. Labs were significant for WBC count of 8.4, hemoglobin 12.9, sodium 131, carbon dioxide 21, BUN 24, troponin < 0.028, proBNP 123. chest CTA showed several segmental level pulmonary emboli in the right upper and lower lobes but otherwise clear lungs. She has been started on low-molecular rate heparin, Cardizem drip, and she has been admitted to the IMU for further treatment and evaluation. Review of Systems Review of Systems: Twelve systems were reviewed and are negative except for as per HPI. [facility] Past Medical History Medical History (Updated 07/28/23 @ 00:53 by Linda Fam PA-C) Asthma Diverticulitis Gastroesophageal reflux disease Hyperlipidemia Hypothyroidism Obstructive sleep apnea Osteoporosis Surgical History Surgical History History of bilateral cataract extraction History of colonoscopy with polypectomy Family History Family History Mother Family history of cardiovascular disease Hypertension Cerebrovascular accident Father Family history of cardiovascular disease Family history of hepatitis Family history of congestive heart failure Acute myocardial infarction Grandparent Family history of cardiovascular disease Other Family history of lung cancer Family history of malignant neoplasm Family history of malignant neoplasm of ovary Social History Social History Social History: Surrogate medical decision maker: Castro Salinas, spouse. Code status: Full code. Smoking status: Never smoker Second hand tobacco smoke exposure: Yes Alcohol intake: never Alcohol use details: maybe 3 or 4 a year Substance use: never Substance use type: does not use Do You Feel Safe in your Home?: Yes Lack of Transportation: No Lack of Food: Never True Current Housing: I Have Housing Concerned About Future Housing: No Difficulty Paying Gas/Electric Bills: No Difficulty Paying for Meds: No Currently Unemployed: No Education: High School Diploma/GED Difficulty w/ Childcare or Family Care: No Living arrangements: with family Occupation/Education: retired Spiritual care concerns: No Meds Home Medications and Allergies Home Medications Medication Instructions Recorded Confirmed Type calcium carbonate 600 mg-vitamin 1 tablet PO DAILY 07/07/19 07/27/23 History D3 5 mcg (200 unit) tablet (Calc
[2023-07-27 20:32] LABS: Troponin I 0.028 ng/mL (0.000-0.034)
--- NOTE | 2023-07-27 22:52 | PC.NURSE ---
this rn contacted Castro pt spouse to give pt spouse update.
--- NOTE | 2023-07-27 22:52 | ADMGEN ---
This patient, Lety Salinas, was admitted to IMU Room [id number]. Patient/family oriented to hospital policies and general routines including ID bracelet, bed and alarms, visiting hours, pain management, procedures, bathroom and other care routines, personal items, smoking policy, room service/diet, and visiting hours. Information on how to activate the Rapid Response Team has been discussed. Patient/Family are encouraged to report perceived risks to care and to ask questions if they do not understand what they are told or what they should do.
--- NOTE | 2023-07-27 23:28 | ECG_ITS ---
Measurements Intervals [place] Rate: 155 P: [place]: 0 QRS: 43 QRSD: 76 T: 56 QT: 255 QTc: 409 Interpretive Statements ATRIAL FLUTTER/TACHYCARDIA WITH RAPID VENTRICULAR RESPONSE NONSPECIFIC ST & T-WAVE ABNORMALITY ABNORMAL RHYTHM ECG COMPARED TO ECG 07/27/2023 20:03:46 ATRIAL FLUTTER NOW PRESENT T-WAVE ABNORMALITY NOW PRESENT Electronically Signed On 07-28-2023 8:20:38 VICE PRESIDENT DIVERSITY by Lisandro Brothers M.D.
[2023-07-28] VITALS (23 sets, daily range): BP systolic 98–120; BP diastolic 50–82; PULSE 62–114; RESP 14–18; TEMP 36.5–37.5; O2SAT 95–100
[2023-07-28 00:55] LABS: Troponin I 0.097 ng/mL (0.000-0.034)
[2023-07-28] MEDS: dilTIAZem 100 MG/100 ML 100 MG/100 ML BAG 15 MG IV CONT ×2 (02:08→08:58)
[2023-07-28 05:22] LABS: Hematocrit 39.1 % (37.0-47.0); Mean Corpuscular HGB Conc 33.2 g/dl (32-36); Mean Corpuscular Hemoglobin 29.7 pg (26-34); Mean Corpuscular Volume 89.3 fl (80-100); Mean Platelet Volume 11.1 fl (7.4-10.4); Platelet Count Result 153 k/mm3 (150-375); Red Blood Count 4.38 M/mm3 (4.2-5.4); Red Cell Distribution Width 14.5 % (11.5-14.5); White Blood Count 5.8 K/mm3 (4.5-10.0)
[2023-07-28 05:38] LABS: Blood Urea Nitrogen 20 mg/dL (7-17); Calcium 8.2 mg/dL (8.4-10.2); Carbon Dioxide 17 mmol/L (22-30); Estimated Glomerular Filt Rate > 60; Glucose 97 mg/dL (65-110)
[2023-07-28 06:32] LABS: Anion Gap 9 mmol/L (8-16); Chloride 108 mmol/L (98-107); Potassium 3.9 mmol/L (3.4-5.0); Sodium 134 mmol/L (137-145)
--- NOTE | 2023-07-28 08:41 | ECG_ITS ---
Measurements Intervals [place] Rate: 80 P: [place]: 0 QRS: 24 QRSD: 83 T: 23 QT: 380 QTc: 440 Interpretive Statements ATRIAL FIBRILLATION NONSPECIFIC ST & T-WAVE ABNORMALITY ABNORMAL ECG COMPARED TO ECG 07/27/2023 23:34:55 NO SIGNIFICANT CHANGES Electronically Signed On 07-28-2023 10:26:08 PRACTICE ADVISOR by Lisandro Brothers M.D.
--- NOTE | 2023-07-28 08:53 | PM.IMPN ---
Progress Note: A&P Assessment and Plan (1) Pulmonary emboli: Code(s): I26.99 - Other pulmonary embolism without acute cor pulmonale Status: Acute (2) COVID: Code(s): U07.1 - COVID-19 Status: Acute (3) Gastroesophageal reflux disease: Code(s): K21.9 - Gastro-esophageal reflux disease without esophagitis Status: Acute (4) Atrial fibrillation with rapid ventricular response: Code(s): I48.91 - Unspecified atrial fibrillation Status: Acute Plan This is a pleasant 83-year-old white female with a history of asthma, obstructive sleep apnea, hypercholesterolemia, osteoporosis, GERD. She had COVID symptoms for over a week and returning to the urgent care for the 2nd time for COVID test was found to be COVID positive but also be in AFib with RVR. In [facility] she is found have a PE. Admitted on 07/27/2023 #Atrial fibrillation with rapid ventricular rate, new diagnosis -received a total of 15 mg IV diltiazem push in the ER and was placed on diltiazem drip. Morning of 07/28/2019 for the drip has been turned off and she is in normal sinus rhythm. -maintenance dose have not been started however cardiology has been consulted so allow them to manage that. -currently on Lovenox therapeutic dosing. Transition to apixaban tonight barring any conflicting recommendation from Cardiology. -TSH within normal limits. Pending surface echocardiogram #COVID-19 pneumonia not requiring oxygen -supportive care for her constitutional symptoms. -discussed the use of remdesivir and Paxlovid for her being high risk although she has had symptoms already for a week so they are not necessarily indicated and she wants to think about it. -if not already vaccinated this season that should be arranged. #Pulmonary embolism, right-sided upper and lower segmental -this could technically be considered provoked given that she has COVID and COVID is known to cause pulmonary embolism. None the less we will defer ongoing treatment at 3 months to follow up with PCP. -currently no symptomatology. Transition to apixaban tonight. Pending lower extremity Dopplers #Elevated troponin -troponin bumped from 0.028-0.097. She has no chest pain or symptomatology of ACS. EKG without acute ischemia only nonspecific T-wave change. -is likely due to her rapid ventricular rate -recheck troponin EKG now FEN: Saline lock IV. Heart healthy diet GI prophylaxis: Continue home dose PPI DVT prophylaxis: On therapeutic Lovenox Lines: Peripheral IV Code Status: Full code Dispo: Stable. Patient complains of weakness. Have ordered PT OT Subjective Date/time seen: 07/28/23 08:53 Interval history: No acute overnight events. The patient has no heart complaints, no chest pain no shortness of breath. She only complains of the URI symptoms which have been going on for at least a week. Runny eyes runny nose and feeling generally weak Review of Systems Review of Systems: All systems reviewed & are unremarkable except as noted in HPI and below (Subjective) Exam Const: General: comfortable and no acute distress Other: A&O x3 Eyes: Pupils: Equal, round and reactive pupils present Neck: Neck: supple Resp: Effort & Inspection: normal respiratory effort Auscultation: clear to auscultation bilaterally, no crackles, no rales, no rhonchi and no wheezes Cardio: Rate: regular rate Rhythm: regular rhythm Heart sounds: no gallops, no murmurs and no rubs GI: GI Palp: Yes Soft to palpation and No Tenderness to palpation present (GI) Extrem: General: no edema Objective Data Vital Signs Vital Signs: Vital Signs - 24 hr 07/27/23 16:44 07/27/23 16:51 07/27/23 16:54 Temperature Pulse Rate 114 H 167 H 165 H Respiratory Rate 24 H Blood Pressure 126/75 130/96 H Pulse Oximetry 97 Oxygen Delivery Room Air 07/27/23 17:26 07/27/23 17:43 07/27/23 17:44 Temperature Pulse Rate 167 H 178 H 175 H Respiratory Rate 21 H
[2023-07-28] MEDS: ENOXAPARIN 40 MG/0.4 ML SYRINGE SUB-Q ×2 (08:54→20:21)
[2023-07-28] MEDS: cycloSPORINE 0.4 ML OPHTH SOLUTION 1 DROP EACH EYE ×2 (08:55→20:21)
[2023-07-28 09:11] LABS: Troponin I 0.116 ng/mL (0.000-0.034)
[2023-07-28] MEDS: FLUTICASONE PROPIONATE 0.05% NA SPR 16 GM BTL (*BKC) 2 SPRAY NASAL (10:02)
--- NOTE | 2023-07-28 10:10 | PM.CNCAR ---
Assessment and Plan Assessment and plan (1) Atrial fibrillation with rapid ventricular response: Code(s): I48.91 - Unspecified atrial fibrillation Status: Acute Assessment and Plan: Atrial fibrillation with rapid ventricular response likely secondary to either COVID infection itself or pulmonary embolism or combination thereof. Heart rate is better controlled at this point. Will reduce her diltiazem drip down to 10 milligrams/hr. She is on enoxaparin at this point for treatment both AFib and pulmonary embolism. Will continue enoxaparin for now at 1 mg per kg subQ q.12 hours. 2D echocardiogram with Dopplers ordered and will be reviewed. Will order free T4 level. Obviously the short term will pursue rate control and anticoagulation. As long as her heart rate is reasonably controlled, can perform a outpatient elective cardioversion in a few weeks. Will transition to oral diltiazem or metoprolol depending on results of echo and continue to wean her diltiazem drip to off (2) COVID-19: Code(s): U07.1 - COVID-19 Status: Acute Assessment and Plan: Treatment per hospitalist (3) Obstructive sleep apnea: Code(s): G47.33 - Obstructive sleep apnea (adult) (pediatric) Status: Acute (4) Pulmonary emboli: Code(s): I26.99 - Other pulmonary embolism without acute cor pulmonale Status: Acute Assessment and Plan: On enoxaparin 1 milligram/kilogram subQ q.12 hours. Transition to a DOAC before DC (5) Elevated troponin: Code(s): R79.89 - Other specified abnormal findings of blood chemistry Status: Acute Assessment and Plan: Likely secondary to either AFib with extreme RVR or PE or COVID or all the above. Not related to acute coronary syndrome from plaque rupture. Echo ordered and pending History of Present Illness History of Present Illness Consult date/time: 07/28/23 10:10 Reason For Visit: COVID/New Onset Afib w RVR/Pulmonary Embolism Narrative: Date of service 07/28/2023 Reason for consultation atrial fibrillation Requesting provider: Chetna Fam History: Patient is an 83-year-old female who presented to urgent care because of shortness of breath, cough, weakness. She was found to be COVID positive and also found to be in atrial fibrillation with rapid ventricular response. She did undergo a CTA angiogram which also showed multiple subsegmental pulmonary emboli. She was started on diltiazem drip her heart rate is relatively well controlled at this point. She denies any chest pain but did have an episode of a weight of heaviness that went across her chest couple of days ago. That has since resolved. She denies any syncope, presyncope, paroxysmal nocturnal dyspnea, orthopnea, edema or palpitations. She has no bleeding concerns. Review of Systems Review of Systems: All systems reviewed & are unremarkable except as noted in HPI and below Constitutional: Constitutional: Denies body ache(s), Reports fatigue and Reports lethargy Eyes: Eyes: Denies blurry vision ENT: Denies Normal hearing present Cardiovascular: Cardiovascular: Denies chest pain Respiratory: Respiratory: Reports dyspnea Gastrointestinal: Gastrointestinal: Denies abdominal pain Genitourinary: Genitourinary: Denies hematuria Musculoskeletal: Musculoskeletal: Denies arthralgias Integumentary/Breasts: Skin/Breast: Denies erythema Neurologic: Denies Abnormal speech present Psychiatric: Psychiatric: Denies anxiety Endocrine: Endocrine: Denies excessive sweating Hematologic/Lymphatic: Hematologic/Lymphatic: Denies easy bleeding Allergic/Immunologic: Allergic/Immunologic: Denies GI upset with certain foods PMFSH Past Medical History Medical History Asthma Diverticulitis Gastroesophageal reflux disease Hyperlipidemia Hypothyroidism Obstructive sleep apnea Osteoporosis Surgical History Surgical History (R
[2023-07-28 13:47] LABS: Troponin I 0.054 ng/mL (0.000-0.034)
[2023-07-28 13:49] LABS: Free T4 Free Thyroxine 1.48 ng/mL (0.78-2.19)
--- NOTE | 2023-07-28 16:30 | ECG_ITS ---
Measurements Intervals [place] Rate: 70 P: 81 GA: 199 QRS: 28 QRSD: 83 T: 66 QT: 404 QTc: 437 Interpretive Statements SINUS RHYTHM NONSPECIFIC T-WAVE ABNORMALITY ABNORMAL ECG COMPARED TO ECG 07/28/2023 09:02:42 SINUS RHYTHM NOW PRESENT Electronically Signed On 07-29-2023 8:38:17 [employer] by Lisandro Brothers M.D.
[2023-07-29] VITALS (16 sets, daily range): BP systolic 114–134; BP diastolic 53–74; PULSE 62–90; RESP 16–18; TEMP 36.1–36.8; O2SAT 95–100
--- NOTE | 2023-07-29 00:49 | ECHO_ITS ---
Patient Info Name: Lety Salinas Age: 83 years : 1940 Gender: Female Ht: 59 in Wt: 91 lbs BSA: 1.31 m2 HR: 66 bpm BP: 114 / 74 mmHg Heart Rhythm: Sinus Rhythm Technical Quality: Fair Exam Date: 07/29/2023 2:15 PM Exam Location: Echo Lab Patient Status: Inpatient Admit Date: 07/27/2023 Staff Ordering Physician: Linda Fam PA-C Auto Machinist: Darcy Still RDCS Attending Provider: Yeison Son MD Referring Physician: Sarwat RIOS; Exam Type: CA echo doppler color flow Study Info Indications - afib/rvr, PE Complete two-dimensional, color flow and Doppler transthoracic echocardiogram is performed. Summary 1. Complete two-dimensional, color flow and Doppler transthoracic echocardiogram is performed. 2. Normal left ventricular size and systolic function with grade 1 diastolic noncompliance. 3. Modestly dilated left atrium. 4. Trivial amount of aortic valve regurgitation. Left Ventricle Left ventricular chamber dimension is normal. Left ventricular systolic function is normal, estimated at 50-55%. The left ventricular diastolic function is grade I diastolic dysfunction. Right Ventricle Right ventricular chamber dimension is normal. Left Atria Left atrial chamber dimension is mildly enlarged. Right Atria Right atrial chamber dimension is normal. Aortic Valve The aortic valve is normal. There is trace aortic valve regurgitation. Pulmonic Valve The pulmonic valve is normal. Mitral Valve The mitral valve has normal leaflets. Tricuspid Valve The tricuspid valve leaflets are normal. Pericardium/Pleural The pericardium appears normal. Aorta The aortic root size at the sinus of Valsalva is normal. Left Ventricular Outflow Tract Name Value Normal LVOT 2D LVOT Diameter 1.9 cm LVOT Doppler LVOT Peak Gradient 4 mmHg LVOT Mean Gradient 2 mmHg LVOT VTI 18 cm LVOT VTI/AV VTI Ratio 0.6 LVOT Stroke Volume 49 ml LVOT CO 3.3 l/min LVOT CI 2.5 l/min/m2 Pulmonic Valve Name Value Normal RVOT Doppler RVOT Peak Gradient 2 mmHg PV Doppler PV Peak Gradient 3 mmHg Mitral Valve Name Value Normal MV Doppler MV Decel G[place] 347 cm/s2 MV PHT 65 ms MV Area (PHT) 3.4 cm2 4.0-5.0 MV Diastolic Function
[2023-07-29 05:11] LABS: Basophils Percent Auto 0.7 % (0.2-1.2); Eosinophils Percent Auto 0.7 % (0-4.4); Hematocrit 36.7 % (37.0-47.0); Hemoglobin 11.6 g/dL (12.0-15.0); Immature Granulocyte Absolute 0.02 K/mm3 (0.00-0.031); Immature Granulocyte Percent A 0.3 % (0-0.5); Lymphocytes Absolute Auto 1.54 K/mm3 (0.9-3.2); Lymphocytes Percent Auto 26.8 % (18.3-44.2); Mean Corpuscular HGB Conc 31.6 g/dl (32-36); Mean Corpuscular Hemoglobin 29.1 pg (26-34); Mean Platelet Volume 11.2 fl (7.4-10.4); Monocytes Absolute Auto 0.8 K/mm3 (0.1-0.6); Monocytes Percent Auto 14.6 % (2.6-8.5); Neutrophils Absolute Auto 3.3 K/mm3 (1.3-6.7); Neutrophils Percent Auto 56.9 % (45.5-73.1); Platelet Count Result 155 k/mm3 (150-375); Red Blood Count 3.99 M/mm3 (4.2-5.4); Red Cell Distribution Width 14.2 % (11.5-14.5); White Blood Count 5.7 K/mm3 (4.5-10.0)
[2023-07-29 05:28] LABS: Anion Gap 5 mmol/L (8-16); Blood Urea Nitrogen 13 mg/dL (7-17); Calcium 8.3 mg/dL (8.4-10.2); Carbon Dioxide 23 mmol/L (22-30); Chloride 106 mmol/L (98-107); Estimated Glomerular Filt Rate > 60; Glucose 94 mg/dL (65-110); Magnesium 2.2 mg/dL (1.6-2.3); Potassium 3.3 mmol/L (3.4-5.0); Sodium 134 mmol/L (137-145)
--- NOTE | 2023-07-29 08:32 | PCPTNOTE ---
discussed pt with MAI Covarrubias 81Oleg, she reports pt is indep to bathroom all weekend, and expect d/c orders. HOLD PT eval, will check later if not d/c'd
[2023-07-29] MEDS: ENOXAPARIN 40 MG/0.4 ML SYRINGE SUB-Q (10:16)
[2023-07-29] MEDS: cycloSPORINE 0.4 ML OPHTH SOLUTION 1 DROP EACH EYE (10:16)
[2023-07-29] MEDS: FLUTICASONE PROPIONATE 0.05% NA SPR 16 GM BTL (*BKC) 2 SPRAY NASAL (10:16)
[2023-07-29] MEDS: METOPROLOL SUCCINATE EXT REL 12.5 MG TABCR PO (13:12)
[2023-07-29] MEDS: POTASSIUM CHLORIDE 20 MEQ ER TABLET PO (13:13)
--- NOTE | 2023-07-29 17:34 | PM.DS ---
DS: Admitting Diagnosis Discharge Date July 29, 2023 Admitting Diagnosis Upper respiratory symptoms DS: Discharge Diagnosis Discharge Diagnosis (1) Pulmonary air embolism: Code(s): T79.0XXA - Air embolism (traumatic), initial encounter Status: Acute (2) Elevated troponin: Code(s): R79.89 - Other specified abnormal findings of blood chemistry Status: Acute (3) Pulmonary emboli: Code(s): I26.99 - Other pulmonary embolism without acute cor pulmonale Status: Acute (4) COVID: Code(s): U07.1 - COVID-19 Status: Acute (5) Atrial fibrillation with rapid ventricular response: Code(s): I48.91 - Unspecified atrial fibrillation Status: Acute DS: Summary Hospital Course Hospital Course: Mss. Salinas is a pleasant 83-year-old white female with a history of asthma, KARMEN, hypercholesterolemia, osteoporosis, GERD. She had COVID symptoms for over a week and when presenting to urgent care for COVID testing she was found to be COVID positive but also in AFib with RVR along with a pulmonary embolism. She was then transferred to [facility] and admitted for further workup. Her AFib RVR was treated effectively with diltiazem IV push. Cardiology was consulted and for maintenance dosing she has been started on metoprolol succinate 12.5 mg daily and tolerating it well. TSH 2.130. A surface echo on 07/29 demonstrated normal left ventricular size and systolic function with grade 1 diastolic noncompliance, modestly dilated left atrium and trivial amount of aortic valve regurgitation. She will follow-up to establish care with DUNIA Willson with [facility] Cardiology for further management. As mentioned, she was found to have pulmonary emboli in the right upper and lower lobes. For this and the new onset AFib with RVR she was started on apixaban 10 mg p.o. b.i.d. for 7 days and then 5 mg p.o. b.i.d. thereafter. She will follow with primary care for further management of this and other comorbid conditions. Patient had no complications from COVID. She was educated on the process of COVID and instituting proper isolation precautions. The patient was in understanding and amenable to the plan. She knows to return to ER if she develops worsening symptoms. He is discharged to home on 07/29 in stable condition. The patient was full code during her admission. Time Spent with Patient Time attestation: Total time spent providing and/or coordinating discharge services: Exam Const: General: comfortable and no acute distress Other: A&O x3 Eyes: Pupils: Equal, round and reactive pupils present Neck: Neck: supple Resp: Effort & Inspection: normal respiratory effort Auscultation: clear to auscultation bilaterally, no crackles, no rales, no rhonchi and no wheezes Cardio: Rate: regular rate Rhythm: regular rhythm Heart sounds: no gallops, no murmurs and no rubs GI: GI Palp: Yes Soft to palpation and No Tenderness to palpation present (GI) Extrem: General: no edema DS: Data Data Completed and Pending Labs on day of discharge: Labs from last 24 hours 07/29/23 04:46 WBC 5.7 RBC 3.99 L Hgb 11.6 L Hct 36.7 L MCV 92.0 MCH 29.1 MCHC 31.6 L RDW 14.2 Plt Count 155 MPV 11.2 H Immature Gran % (Auto) 0.3 Neut % (Auto) 56.9 Lymph % (Auto) 26.8 [place] % (Auto) 14.6 H Eos % (Auto) 0.7 Baso % (Auto) 0.7 Lymph # (Auto) 1.54 [place] # (Auto) 0.8 H Eos # (Auto) 0.0 Baso # (Auto) 0.0 Abs Immat Gran (auto) 0.02 Absolute Neuts (auto) 3.3 Absolute Nucleated RBC 0.0 Nucleated RBC % 0.0 Sodium 134 L Potassium 3.3 L Chloride 106 Carbon Dioxide 23 Anion Gap 5 L BUN 13 D Creatinine 0.70 Estim Creat Clear Calc Not Reportable Estimated GFR > 60 Glucose 94 Calcium 8.3 L Magnesium 2.2 Discharge Plan Discharge Attending physician on discharge: Pilar Storm Consulting providers: Lisandro Brothers Discharging Clinician: Melva Storm
== END 2023-07-29 18:52 | disposition home or self-care (01) | DRG 177 ==
LOC: ANHED 16:53 → ANHIMU 22:21
PROVIDERS: Internal Medicine Cardiovascular Disease; Physician Assistant; Admitting Provider Internal Medicine; Emergency Provider Emergency Medicine; PCP Family Medicine; Visit Provider General Practice
DX: U07.1 COVID-19 (principal); I26.99 Other pulmonary embolism without acute cor pulmonale; I48.91 Unspecified atrial fibrillation; E03.9 Hypothyroidism, unspecified; E78.00 Pure hypercholesterolemia, unspecified; G47.33 Obstructive sleep apnea (adult) (pediatric); J45.909 Unspecified asthma, uncomplicated; K21.9 Gastro-esophageal reflux disease without esophagitis; M81.0 Age-related osteoporosis without current pathological fracture; R79.89 Other specified abnormal findings of blood chemistry; Z98.41 Cataract extraction status, right eye; Z98.42 Cataract extraction status, left eye
CPT/HCPCS: 36415; 71045; 71275; 80048; 80053; 81001; 83735; 83880; 84439; 84443; 84484; 85025; 85027; 85055; 85610; 85730; 87426; 87637; 87804; 93005; 93306; 93970; 96365; 96366; 96372; 97165; 99291; A9270; J1650; Q9967

== ENCOUNTER 2023-10-05 20:07 | Emergency (ER) | payer MEDICARE, OTHER, SELFPAY ==
--- NOTE | ~2023-10-05 | XR_ITS ---
EXAM: XR toe 1st LT min 2V DATE: 10/05/2023 20:27 HISTORY: L big toe injury . COMPARISON: None available. FINDINGS: Lateral view limited by overlapping toes. Decreased mineralization. No fracture or dislocat ion. No lytic or blastic lesion. Mild scattered degenerative changes. No erosion or periosteal change . Soft tissues within normal limits. IMPRESSION: No acute osseous finding in the left first toe. Reviewed, dictated and finalized at location K.
[2023-10-05 20:09] VITALS: BP 176/60; PULSE 66; RESP 17; TEMP 36.3; O2SAT 100
--- NOTE | 2023-10-05 21:20 | ED.GENADULT ---
HPI - General Adult General Chief complaint: Extremity Injury, Lower Stated complaint: left big toe injury Time Seen by Provider: 10/05/23 20:15 Source: patient Mode of arrival: ambulatory Limitations: no limitations History of Present Illness HPI narrative: This is an 83-year-old female who presents to the ED with chief complaint of left great toe injury that occurred just prior to arrival. Patient was in a restaurant and had a metal door closed on her toe. She reports this caused a toenail injury. She has dealt with many injuries to this toenail and states that it has deformity at baseline. Reports a lot of bleeding at the time that has since been controlled. Reports pain to the left great toe but no other sites of pain or injury. Denies numbness or weakness. Related Data Home Medications Medication Instructions Recorded Confirmed calcium carbonate 600 mg-vitamin 1 tablet PO DAILY 07/07/19 08/09/23 D3 5 mcg (200 unit) tablet (Calcium 600 + D(3)) cyclosporine 0.05 % eye drops in a 1 drp ophthalmic (eye) Q12H 07/07/19 08/09/23 dropperette (Restasis) denosumab 60 mg/mL subcutaneous 60 mg subcut [id number] 07/07/19 08/09/23 syringe (Prolia) Allergies Allergy/AdvReac Type Severity Reaction Status Date / Time No Known Allergies Allergy Verified 10/05/23 20:12 Review of Systems Review of Systems: All systems as dictated in [facility] Past Medical History Medical History Asthma Diverticulitis Gastroesophageal reflux disease Hyperlipidemia Hypothyroidism Obstructive sleep apnea Osteoporosis Surgical History Surgical History History of bilateral cataract extraction History of colonoscopy with polypectomy Family History Family History Mother Family history of cardiovascular disease Hypertension Cerebrovascular accident Father Family history of cardiovascular disease Family history of hepatitis Family history of congestive heart failure Acute myocardial infarction Grandparent Family history of cardiovascular disease Other Family history of lung cancer Family history of malignant neoplasm Family history of malignant neoplasm of ovary Social History Social History Social History: Surrogate medical decision maker: Castro Salinas, spouse. Code status: Full code. Smoking status: Never smoker Second hand tobacco smoke exposure: Yes Alcohol intake: never Alcohol use details: maybe 3 or 4 a year Substance use: never Substance use type: does not use Do You Feel Safe in your Home?: Yes Lack of Transportation: No Lack of Food: Never True Current Housing: I Have Housing Concerned About Future Housing: No Difficulty Paying Gas/Electric Bills: No Difficulty Paying for Meds: No Currently Unemployed: No Education: High School Diploma/GED Difficulty w/ Childcare or Family Care: No Living arrangements: with family Occupation/Education: retired Spiritual care concerns: No Exam Narrative: GENERAL: Well-appearing, well-nourished, and in no acute distress. HEAD: Normocephalic, atraumatic. EYES: PERRLA and EOMI. ENT: Nares clear, no rhinorrhea or epistaxis. Mucous membranes moist. Oropharynx without tonsillar hypertrophy exudate or other lesions. NECK: Supple. No adenopathy or masses. CHEST: No respiratory distress. Clear to auscultation. No wheezes rales or rhonchi HEART: Regular rate and rhythm. No murmur heard. Normal peripheral pulses. ABDOMEN: Soft, nontender, nondistended, normal active bowel sounds. MSK: Mild tenderness to the left great toe. No deformity. SKIN: 1.5 cm flap laceration to the distal left great toe. Bleeding controlled. A piece of the distal toenail has been completely avulsed. Nail bed intact. No brui
[2023-10-05] MEDS: TETANUS,DIPHTHERIA,AC PERTUSSIS ADULT (0.5 ML) BOOSTRIX IM (22:04)
--- NOTE | 2023-10-11 11:15 | PC.NURSE ---
LATE ENTRY This note is being entered to document information to the patient's record. The following information was omitted on [10/05/23], by [Mariella Wilburn RN]. Wound Injury clarified and was the left first toe.
== END 2023-10-05 22:29 | disposition home or self-care (01) ==
PROVIDERS: Emergency Provider Physician Assistant; PCP Emergency Medicine
DX: S91.212A Laceration without foreign body of left great toe with damage to nail, initial encounter (principal); Z23 Encounter for immunization; J45.909 Unspecified asthma, uncomplicated; E78.5 Hyperlipidemia, unspecified; E03.9 Hypothyroidism, unspecified; G47.33 Obstructive sleep apnea (adult) (pediatric); K21.9 Gastro-esophageal reflux disease without esophagitis; M81.0 Age-related osteoporosis without current pathological fracture; Z86.010 Personal history of colon polyps; Z98.42 Cataract extraction status, left eye; Z98.41 Cataract extraction status, right eye; W23.0XXA Caught, crushed, jammed, or pinched between moving objects, initial encounter
CPT/HCPCS: 12001; 73660; 90471; 90715; 99283

== ENCOUNTER 2023-11-29 10:39 | Outpatient (CLI) | payer MEDICARE, OTHER, SELFPAY ==
--- NOTE | ~2023-11-29 | MMUS_ITS ---
EXAMINATION: MM diagnostic sanchez BI w jayden, US breast LT limited HISTORY: Left breast lump TECHNIQUE: Additional 3-D tomosynthesis images of the breasts were performed and synthetic 2-D images were generated. CAD analysis was submitted and interpreted. High resolution Limited left breast ultr asound was performed. COMPARISON: Comparison to multiple prior studies sequentially, with oldest reviewed study dated 06/30. BREAST PARENCHYMAL COMPOSITION: Not dense: There are scattered areas of fibroglandular density. FINDINGS: MAMMOGRAPHIC FINDINGS: The right breast is stable without evidence for malignancy. There is a new spiculated mass in the upp er outer quadrant of the left breast posteriorly measuring approximately 2.2 cm by mammography on CC view. ULTRASOUND: Limited left breast ultrasound: At 2:00, 9 cm from the nipple there is an irregular shaped mass conta ining internal calcifications with mixed posterior attenuation. This mass is antiparallel measuring 2 .2 x 1.7 x 2 cm. There is internal vascularity. This corresponds to the mammographic IMPRESSION: 1. New 2.2 cm spiculated left breast mass upper outer quadrant. 2. Ultrasound-guided left breast biopsy recommended. BI-RADS category 5: Highly suspicious abnormality. Reviewed, dictated and finalized at location B. IMPRESSION: 1. New 2.2 cm spiculated left breast mass upper outer quadrant. 2. Ultrasound-guided left breast biopsy recommended. BI-RADS category 5: Highly suspicious abnormality.
== END 2023-11-29 10:40 | disposition home or self-care (01) ==
LOC: ANHIMG 10:41
PROVIDERS: PCP Emergency Medicine; Visit Provider Emergency Medicine
DX: N63.21 Unspecified lump in the left breast, upper outer quadrant (principal); R92.8 Other abnormal and inconclusive findings on diagnostic imaging of breast
CPT/HCPCS: 76642; 77062; 77066; G0279

== ENCOUNTER 2023-12-05 07:51 | Outpatient (CLI) | payer MEDICARE, OTHER, SELFPAY ==
--- NOTE | ~2023-12-05 | MMUS_ITS ---
MM post biopsy diagnostic LT, US breast biopsy LT w image EXAMINATION: US GUIDED NEEDLE BIOPSY WITH VACUUM ASSISTANCE DATE: 12/05/2023 10:38 CDT INDICATION: Left breast mass seen on prior examination. Ultrasound-guided core biopsy is requested t o evaluate for malignancy. TECHNIQUE AND FINDINGS: The risks and potential benefits of the procedure were discussed with the patient, and written inform ed consent was obtained. After sterile preparation of the left breast, 1% lidocaine was utilized for local anesthesia. 1% lidocaine with epinephrine was used for deep anesthesia. A 10G vacuum-assisted biopsy gun needle was advanced through to the outer edge of the region of inter est from a lateral approach utilizing sonographic guidance. A total of 5 tissue core samples were ob tained through the lesion. An Inrad tissue marker clip was then placed at the biopsy site. Hemostasi s was achieved. The patient tolerated procedure well and there was no evidence of immediate complication. The patien t was given verbal instructions partly is from the department. Left breast mammograms to document ti ssue marker clip placement. The tissue samples were submitted to surgical pathology for histologic an alysis. IMPRESSION: 1. Successful ultrasound-guided vacuum-assisted biopsy of left breast mass with tissue marker placem ent. Please refer to pathology report for histologic analysis. Reviewed, dictated and finalized at location B. IMPRESSION: 1. Successful ultrasound-guided vacuum-assisted biopsy of left breast mass wit h tissue marker placement. Please refer to pathology report for histologic anal ysis.
== END 2023-12-05 07:52 | disposition home or self-care (01) ==
PROVIDERS: PCP Emergency Medicine; Visit Provider Emergency Medicine
DX: C50.412 Malignant neoplasm of upper-outer quadrant of left female breast (principal)
CPT/HCPCS: 19083; 77065; 88305; 88360; A4648

== ENCOUNTER 2024-01-21 14:36 | Outpatient (CLI) | payer MEDICARE, OTHER, SELFPAY ==
--- NOTE | ~2024-01-21 | US_ITS ---
EXAMINATION: US carotid duplex BI DATE: 01/21/2024 15:15 INDICATION: Right carotid bruit. TECHNIQUE: Grayscale, color Doppler, and pulsed Doppler images of the cervical carotid arteries were obtained. The degree of vessel stenosis is placed in one of the following categories: normal, <50%, 5 0-69%, >=70% but less than near-occlusion, near-occlusion, or total occlusion. Note that percent sten osis relative to normal distal artery lumen diameter is indirectly measured from velocity measurement s as described by Christian, et al. Radiology 2003; 229:340-346. COMPARISON: None. FINDINGS: RIGHT: The right common carotid artery (CCA) peak systolic velocity (PSV) is 80 cm/s. The right internal car otid artery (ICA) PSV is 103 cm/s. The right ICA end-diastolic velocity (EDV) is 27 cm/s. The right I CA/CCA PSV ratio is 1.3. Grayscale and color Doppler images yield an estimate of <50% diameter reduct ion from plaque in the ICA. There is antegrade flow in the right vertebral artery. LEFT: The left CCA PSV is 74 cm/s. The left ICA PSV is 102 cm/s. The left ICA EDV is 19 cm/s. The left ICA/ CCA PSV ratio is 1.4. Grayscale and color Doppler images yield an estimate of <50% diameter reduction from plaque in the ICA. There is antegrade flow in the left vertebral artery. IMPRESSION: 1. <50% stenosis in the right internal carotid artery. 2. <50% stenosis in the left internal carotid artery. Reviewed, dictated and finalized at location A.
== END 2024-01-21 14:37 | disposition home or self-care (01) ==
LOC: ANHIMG 14:39
PROVIDERS: PCP Emergency Medicine; Visit Provider Internal Medicine Cardiovascular Disease
DX: R09.89 Other specified symptoms and signs involving the circulatory and respiratory systems (principal); I65.23 Occlusion and stenosis of bilateral carotid arteries
CPT/HCPCS: 93880

== ENCOUNTER 2024-01-22 00:13 | Day surgery (SDC) | payer MEDICARE, OTHER, SELFPAY ==
--- NOTE | 2024-01-21 11:03 | PC.NURSE ---
Report to the Outpatient Waiting Room, entrance under the green pavilion located off [facility], at time _1000_ on date _[id number]_. Planned Procedure Time: _1200_. Time changes happen often and if your time is changed the preop area will call you the afternoon before. - You and your visitor will be asked to self-screen and do not enter if you have any COVID symptoms. - A mask is optional within the hospital at this time. Patients may have clear liquids (water, carbonated beverages, clear teas, apple juice) until 3 hours prior to surgery with a maximum of 20 ounces. - No food from midnight until time of surgery Take the following medications with a SIP of water the morning of surgery: ___Metoprolol, Flonase and Restasis DO NOT STOP ANY OF YOUR OTHER PRESCRIPTION MEDICATIONS PRIOR TO SURGERY ?EXCEPT THE FOLLOWING Medications to discontinue per physician Hold vitamins and Eliquis now until after surgery. Please no make-up, nail wolof, hairspray, perfume, deodorant, or body powder the day of surgery. No jewelry (including any body piercings) or valuables the day of surgery, leave them at home. Please take a shower or bath the night before, or the morning of, surgery with an antibacterial soap. Wear comfortable, loose fitting clothing. - Jewelry must be removed prior to entering the operating room. Rings and piercings that are not removed may be cut off. - The hospital will not accept responsibility for valuables. - Please leave all valuables, including medications, at home the day of surgery. If you are going home after surgery, a licensed star route mail driver must drive you home. - NO public transportation without another adult if you receive anesthesia. - We recommend that an adult stay with you for 24 hours following discharge. - We also recommend that you do not drive, make important decision, drink alcoholic beverages, or take any drugs that were not prescribed by your health care provider for at least 24 hours after your discharge time. Follow any additional instructions given to you from your surgeon. If you or anyone in your household have experienced Covid symptoms in the past week, please notify your surgeon or the nurse liaison at the phone number below for possible testing. Telephone instructions given to __Pat___and asked if any additional questions and then verbalized understanding. Patient advised to call surgeon office or pre surgery nurse liaison [phone] if any additional questions.
[2024-01-22] VITALS (10 sets, daily range): BP systolic 114–181; BP diastolic 50–104; PULSE 57–71; RESP 12–18; TEMP 36.3–36.4; O2SAT 96–100
--- NOTE | ~2024-01-22 | NM_ITS ---
EXAMINATION: NM sentinel node inject only DATE: 01/22/2024 13:18 INDICATION: Left breast cancer TECHNIQUE: 1.021 mCi Tc-99m filtered sulfur colloid was injected in four aliquots in the anterior guy ast near the areola. No images were obtained. IMPRESSION: 1. Left breast sentinel lymph node radiopharmaceutical injection. Reviewed, dictated and finalized at location A.
--- NOTE | ~2024-01-22 | MM_ITS ---
BI-RADS category 6- Known biopsy proven malignancy: Appropriate action should be taken. A trauma MM_F AXITRON_MG 01/22/2024 12:52 Indication: Left breast cancer Procedure: Post biopsy specimen Comparison: 12/05/2023 Findings: Not dense: There are scattered areas of fibroglandular density. The specimen contains the m ass of interest as well as the tissue marker. Impression: 1: Post surgical specimen contains the mass of interest including the tissue marker. Reviewed, dictated and finalized at location B. Impression: 1: Post surgical specimen contains the mass of interest including the tissue ma rker.
[2024-01-22] MEDS: LIDOCAINE/PRILOCAINE CREAM 2.5-2.5% TUBE 1 EACH TOPICAL (10:30)
[2024-01-22] MEDS: ACETAMINOPHEN 500 MG TABLET 1000 MG PO (10:45)
--- NOTE | 2024-01-22 11:43 | WPDANESEPPF ---
Anes - Initial Pre Proc Eval Procedure: Operation Date: 01/22/24 12:00 Proposed Procedures p Left Breast Lumpectomy with Left [place] Lymph Node Biopsy with Lymphoseek, Possible Methylene Blue Injection for [place] Node Mapping, Possible Adjacent Tissue Transfer - Lety Holguin MD Date/Time: 01/22/24 11:43 Surgeon: Lety Holguin MD Pre Op Diagnosis: left breast CA Patient Data Age: 83 Gender: F Height: 1.52 m Weight: 46.8 kg Last Vital Signs Temp 36.3 C L 01/22/24 10:45 Pulse 63 01/22/24 10:45 Resp 14 01/22/24 10:45 BP 142/53 H 01/22/24 10:45 Pulse Ox 100 01/22/24 10:45 O2 Del Method Room Air 01/22/24 10:45 Allergies Allergy/AdvReac Type Severity Reaction Status Date / Time No Known Allergies Allergy Verified 01/21/24 10:47 Home Medications Medication Instructions Recorded Confirmed Type cyclosporine 0.05 % eye drops in a 1 drp ophthalmic (eye) Q12H 07/07/19 01/21/24 History dropperette (Restasis) denosumab 60 mg/mL subcutaneous 60 mg subcut [id number] 07/07/19 01/21/24 History syringe (Prolia) omeprazole 20 mg capsule,delayed See Rx Instructions .Route BID 05/06/23 01/21/24 Rx release #180 caps fluticasone propionate 50 2 spray intranasal DAILY #16 grams 07/15/23 01/21/24 Rx mcg/actuation nasal spray,suspension (Allergy Relief (fluticasone)) metoprolol succinate 25 mg 12.5 mg PO DAILY #45 tabs 09/25/23 01/21/24 Rx tablet,extended release 24 hr apixaban 2.5 mg tablet (Eliquis) 2.5 mg PO BID #180 tabs 12/23/23 01/21/24 Rx calcium 500 mg tablet 600 mg PO DAILY 01/21/24 01/21/24 History cholecalciferol (vitamin D3) 25 25 mcg PO DAILY 01/21/24 01/21/24 History mcg (1,000 unit) capsule (Vitamin D3) hydrocodone 5 mg-acetaminophen 325 1 tablet PO Q6H PRN pain #12 tabs 01/22/24 Rx mg tablet Patient hx anesthesia problems: none Family hx anesthesia problems: none Results Review: All pre-operative results and documents have been reviewed as part of the pre-operative evaluation. FOR[facility]LY [facility] Past Medical History Medical History (Updated 01/22/24 @ 11:10 by José Luis Johnson DO) Asthma Atrial fibrillation Diverticulitis Gastroesophageal reflux disease Hyperlipidemia Hypothyroidism Obstructive sleep apnea Osteoporosis Surgical History Surgical History History of bilateral cataract extraction History of colonoscopy with polypectomy Family History Family History Mother Family history of cardiovascular disease Hypertension Cerebrovascular accident Father Family history of cardiovascular disease Family history of hepatitis Family history of congestive heart failure Acute myocardial infarction Grandparent Family history of cardiovascular disease Other Family history of lung cancer Family history of malignant neoplasm Family history of malignant neoplasm of ovary Social History Social History (Updated 12/10/23 @ 11:25 by Orly Sanchez FASHION JOURNALIST) Social History: Surrogate medical decision maker: Castro Ogdenhannon, spouse. Code status: Full code. Smoking status: Never smoker Second hand tobacco smoke exposure: Yes Alcohol intake: current Alcohol use details: maybe 3 or 4 a year Substance use: never Substance use type: does not use Do You Feel Safe in your Home?: Yes Lack of Transportation: No Lack of Food: Never True Current Housing: I Have Housing Concerned About Future Housing: No Difficulty Paying Gas/Electric Bills: Decline to Answer Difficulty Paying for Meds: Decline to Answer Currently Unemployed: No Education: Decline to Answer Difficulty w/ Childcare or Family Care: No Living arrangements: with family Occupation/Education: retired Spiritual care concerns: No Anes - Eval Final PreProcedure Day of Procedure 01/22/24 11:43 Patient weight: normal
--- NOTE | 2024-01-22 11:45 | WPDHPUPDATE1 ---
History and Physical Update Update Date/Time: 01/22/24 11:45 - Left breast lumpectomy with left sentinel lymph node biopsy with Lymphoseek, possible methylene blue injection for sentinel lymph node mapping, and possible adjacent tissue transfer History and Physical has been reviewed, including an updated exam of the patient. There are NO changes in the patient's condition. Risks, benefits, and alternatives have been discussed and questions answered. Patient agrees to proceed with procedure.
[2024-01-22] MEDS: ceFAZolin 2 GM/D5W 50 ML 2 GM/50 ML BAG IVPB (12:05)
[2024-01-22] MEDS: BUPIVACAINE/EPINEPHRINE 0.5% 50 ML VIAL 30 ML INFILTRATE (12:29)
--- NOTE | 2024-01-22 13:26 | P.OP_ITS ---
Procedure Note - Detailed Date of Procedure 01/22/24 Pre-op Diagnosis Left breast invasive ductal carcinoma Post-op Diagnosis Same Procedure Performed 1. Left breast lumpectomy 2. Left sentinel lymph node biopsy with lymphoseek 3. Adjacent tissue transfer 5cm x 8cm (total area 40 cm2) Surgeon Lety Holguin MD Nuclear Cardiology Technologist Grecia Hollis PA-C Anesthesia General Description of Procedure Patient was identified in the pre-operative area and brought to the OR suite. She underwent lymphoseek injection in Nuclear Med for sentinel lymph node mapping prior to presenting to pre-op area. She was laid supine in the operating table and sequential compression devices were applied. General anesthesia was induced without difficulties. The left chest and axillary areas were prepped and draped in a sterile fashion. A superior lateral elliptical incision was made overlying the area of the skin tethering and the palpable superficial tumor with a 15 blade. The tumor was easily identified with palpation and a rim of normal breast tissue was excised along with the tumor as our lumpectomy specimen. Once the specimen was completely excised, it was oriented using surgical paint according to director of user experience instructions. The specimen was placed in the faxitron and 2 radiographs were obtained and sent to Radiology for radiographic confirmation of Tumor, biopsy marker and magseed within the specimen. Once the radiographic confirmation was received, the wound was irrigated with saline and hemostasis was assured. The Neoprobe was used to find an area of highest radioactivity in the axilla and dissection was carried down through the skin area from the lumpectomy incision. I was able to identify a hot node that was excised EN bloc using the LigaSure device. The sentinel node count was 1642 and was sent to pathology as a fresh specimen. The Neoprobe was used again to scan the axilla and I was unable to identify another node with 10% of the count of the initial sentinel node 1. The cavity was irrigated with saline hemostasis was assured. Given the large defect in the upper lateral aspect of the breast decision was made to proceed with mobilization of the axillary skin as well as the upper breast for better closure of this defect. For the superior medial breast was mobilized by dissecting the breast tissue off the pectoralis fascia all the way to the clavicle. Dissection was also carried down to the lateral chest as well as his axillary region for mobilization of the axillary fat. This redundant skin and the upper breast tissue was then advanced inferiorly and lateral to close the lumpectomy cavity. This defect measured approximately 5 cm x 8 cm for a total area of 40 centimeter sq. Once this was performed several intraparenchymal 2-0 Vicryl was were used to secure the breast tissue and close the lumpectomy cavity to decrease the risk of seroma. The deep dermal layer was approximated using interrupted 3-0 vicryl followed by 4-0 monocryl for the skin. Dermabond was applied followed by a surgical bra. Patient was awoken from anesthesia and taken to the recovery area in stable condition. All needles, instruments and sponge counts were correct as reported by the operating room staff. Patient tolerated the procedure well with no immediate complications. Grecia Hollis PA-C was required for positioning and retraction throughout the entire case. Estimated Blood Loss 5 Drains No Pathology Yes Complications No immediate complications Condition Stable Disposition PACU [facility] Billing Surgery - Charge Forward: Surgery Billing (CPT 43037, 80025, 27981)
[2024-01-22] MEDS: LACTATED RINGERS 1,000 ML 30 ML IV CONT (13:29)
[2024-01-22] MEDS: fentaNYL CITRATE INJ (*CRX) 100 MCG/2 ML VIAL 25 MCG IV PUSH ×3 (13:49→14:20)
[2024-01-22] MEDS: oxyCODONE HCL (*CRX) 2.5 MG TAB IR PO (15:10)
== END 2024-01-22 15:59 | disposition home or self-care (01) ==
PROVIDERS: PCP Emergency Medicine; Visit Provider Surgery
PROC: (CPT 19301; principal; 2024-01-22 12:00)
DX: C50.912 Malignant neoplasm of unspecified site of left female breast (principal); Z17.0 Estrogen receptor positive status [ER+]; E78.5 Hyperlipidemia, unspecified; I48.91 Unspecified atrial fibrillation; E03.9 Hypothyroidism, unspecified; G47.33 Obstructive sleep apnea (adult) (pediatric); J45.909 Unspecified asthma, uncomplicated; K21.9 Gastro-esophageal reflux disease without esophagitis; M81.0 Age-related osteoporosis without current pathological fracture; Z79.01 Long term (current) use of anticoagulants
CPT/HCPCS: 19301; 38525; 14301; 38792; 76098; 88305; 88307; A9270; A9520; J0690; J1100; J2405; J2704; J3010; J7120; Q9968

== ENCOUNTER 2024-12-24 10:14 | Outpatient (CLI) | payer MEDICARE, OTHER, SELFPAY ==
--- NOTE | ~2024-12-24 | MM_ITS ---
EXAMINATION: MM screening [facility] BI w jayden HISTORY: Screening mammogram TECHNIQUE: Craniocaudal and mediolateral oblique 3-D tomosynthesis images were obtained and synthetic 2-D images were generated. CAD analysis was submitted and interpreted. COMPARISON: 11/29/2023 BREAST PARENCHYMAL COMPOSITION:Not Dense. There are scattered areas of fibroglandular density. FINDINGS: Status post lumpectomy at the upper, outer left breast with associated postoperative distor tion. No suspicious mass, calcification, or architectural distortion are identified in either breast to suggest malignancy. There has been no suspicious interval change. IMPRESSION: No mammographic evidence of malignancy. Recommend routine screening mammography in one year. BI-RADS Category 2: Benign finding(s). Reviewed, dictated and finalized at location .
--- OUTSIDE RECORDS SUMMARY | 2024-12-24 10:21 | XMS_ITS | Continuity of Care Document ---
Author Organization [facility] Address [address] [place] [address] Phone Care Team Providers Care Gun Number Name Role Phone Ankit, Edward Unavailable Unavailable Advance Directives Directive Yes / No Effective Date File Name No Information Encounters Encounter Description Practice Location Reason(s) For Visit Diagnoses Date Provider Providers Copied on Encounter [facility], [address], [place], [place], [id number], [place] tel:[phone] [facility] No Information Mar-2 4-200 4 Doisy Edward. [address] , [address], [place], [address], [place]. tel:[phone] Family History Family Member Type Diagnosis Age At Onset No Information Payers Payer name Insurance type Covered alliance party ID Authoriza tion(s) No Information Social History Type Description Quantity Date Captured Comments Sex Female Smoking Status No Information Chief Complaint And Reason For Visit No Information Reason For Referral Reason For Referral No Information History Of Present Illness Encounter Date Complaint History Of Prese nt Illness No Information Functional Status Date Functional Assessmen t No Information Instructions Date Instruction Additional Infor mation No Information Assessments Type Assessment Date No Information Patient Care Teams Name Effective Dates (start - stop) Status Members No Information
--- OUTSIDE RECORDS SUMMARY | 2024-12-24 10:21 | XMS_ITS | Referral Summary ---
Author Organization [facility] [address] Address [address] [place] [address] Care Team Providers Care Licensed Midwife Name Role Phone Juan Leonardo MD Primary Care Provider [phone] Allergies No known active allergies Medications metoprolol XL (TOPROL-XL) 25 mg extended release tablet Take 0.5 tablets (12.5 mg total) by mouth daily 07/29/2023 Active apixaban (ELIQUIS) 5 mg tablet Take 1 tablet (5 mg total) by mouth 2 (two) times a day Active omeprazole (PriLOSEC) 20 mg capsule Take 1 capsule (20 mg total) by mouth daily Active fexofenadine HCl (ALLERGY RELIEF, FEXOFENADINE, ORAL) Take by mouth Active calcium carbonate-vitam in D3 1,250 mg (500 mg elemental)-600 unit tablet Take by mouth Active denosumab (PROLIA) 60 mg/mL syringe Inject under the skin once Active cycloSPORINE (RESTASIS) 0.05 % ophthalmic emulsion 1 drop 2 (two) times a day Active Active Problems Problem Noted Date Diagnosed Date Right carotid bruit 01/08/2024 KARMEN (obstructive sleep apnea) 01/08/2024 History of pulmonary embolus (PE) 01/08/2024 Chronic anticoagulation 01/08/2024 Atrial fibrillation 08/14/2023 Social History Tobacco Use Types Packs/Day Years Used Date Smoking Tobacco: Never Tobacco Cessation:Counseling Given: Not Answered Alcohol Use Standard Drinks/Week Comments Yes 0 (1 standard drink = 0.6 oz pur e alcohol) Comments Unknown Sex and Gender Information Value Date Recorded Sex Assigned at Not on file 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 Gender Identity Not on file Sexual Orientation Not on file Last Filed Vital Signs Vital Sign Reading Time Taken Comments Blood Pressure 110/62 01/08/2024 10:21 AM CDT Pulse 66 01/08/2024 10:21 AM CDT Temperature - - Respiratory Rate - - Oxygen Saturation 97% 01/08/2024 10:21 AM CDT Inhaled Oxygen Concentration - - Weight 46.7 kg (103 lb) 01/08/2024 10:21 AM CDT Height 152.4 cm (5') 01/08/2024 10:21 AM CDT Body Mass Index 20.12 01/08/2024 10:21 AM CDT Plan of Treatment Not on file Insurance MEDICARE RAILROAD MEDICARE RAILROAD [facility] [place] Care Teams Licensed Midwife Relationship Specialty Start Date End Date Juan Leonardo MD [address] [place] [address] PCP - General Family Medicine 08/14/23
--- OUTSIDE RECORDS SUMMARY | 2024-12-24 10:21 | XMS_ITS | Clinical Summary ---
Author Organization [facility] [address] Address [address] [place] [address] Care Team Providers Care Ip Attorney Name Role Phone Juan Leonardo MD Primary Care Provider [phone] Allergies No known active allergies Medications metoprolol [...] 01/08/2024 Chronic anticoagulation 01/08/2024 Atrial fibrillation 08/14/2023 Surgical History Surgery Date Site/Laterality Comments POLYPECTOMY vocal cord Medical History Medical History Date Comments Gastroesophageal reflux disease GERD Hx Other Medical Osteopenia Hx Other Medical OA Hx Other Medical KARMEN Asthma asthma Hx Other Medical dyslipdemia Atrial fibrillation (HCC) Covid-19 Pulmonary emboli (HCC) Family History Medical History Relation Name Comments Heart attack Father Myocardial Infa rction; Heart failure Father Congestive Hea rt Failure; Ovarian cancer Mother's Sister 1 1 Ovarian Cancer; Cause of : Ovarian Cancer Lung cancer Mother's Sister 2 2 Cancer, elder ng; Cause of : Cancer, lung Leukemia Mother's Sister 4 Leukemia; Cause of : Leukemia Relation Name Status Comments Father Mother Mother's Sister 1 1 Mother's Sister 2 2 Mother's Sister 3 Mother's Sister 4 Social History Tobacco Use Types Packs/Day Years Used Date Smoking Tobacco: Never Tobacco Cessation:Counseling Given: Not Answered Alcohol Use Standard Drinks/Week Comments Yes 0 (1 standard drink = 0.6 oz pur e alcohol) Comments Unknown Sex and Gender Information Value Date Recorded Sex Assigned at Not on file 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 Gender Identity Not on file Sexual Orientation Not on file Obstetrics History Last Filed Vital Signs Vital Sign Reading [...] 01/08/2024 10:21 AM CDT Plan of Treatment Health Maintenance Due Date Last Done Comments Depression Screening 1938 Fall Risk Assessment 1938 Osteoporosis Screening-Bone Density Scan 1938 DTaP/Tdap/Td Vaccine (1 - Tdap) 1949 Hepatitis B Screening 1956 Pneumococcal vaccine 65+ (1 of 1 - PCV) 1988 Zoster Vaccine (1 of 2) 1988 Well Visit 65+ 2003 Influenza Vaccine (Season Ended) 2025 03/26/20 19, 04/08/2018 Insurance MEDICARE RAILROAD MEDICARE RAILROAD [facility] Care Teams Ip Attorney Relationship Specialty [place] [address] [place] [address] [address] [place] [id number] PCP - General Family Medicine 08/14/23
--- OUTSIDE RECORDS SUMMARY | 2024-12-24 10:21 | XMS_ITS | Clinical Summary ---
Author Organization [facility] [address] [place] Address [address] [facility] [place] [address] Care Team Providers Care Supervisor Show Operations Name Role Phone Unavailable Primary Care Provider Unavailabl e Allergies No known active allergies Medications apixaban (ELIQUIS) 5 mg tablet Take 5 mg by mouth 2 times daily. Active omeprazole (PriLOSEC) 20 mg Capsule, Delayed Release(E.C.) Take 20 mg by mouth daily. Active denosumab (PROLIA) 60 mg/mL Syringe Inject 60 mg by subcutaneous injection. Active cefdinir (OMNICEF) 300 mg capsule Take 1 Capsule by mouth 2 times daily. 4 Active cycloSPORINE (RESTASIS) 0.05 % emulsion 1 Drop 2 times daily. Active metoprolol succinate (TOPROL XL) 25 mg Extended Release 24 hour tablet take 1/2 tablet by mouth daily Active tamoxifen (NOLVADEX) 20 mg tablet Take 1 Tablet (20 mg) by mouth daily. 90 Tablet 3 4 Active Active Problems No known active problems Encounters Date Type Department Care Team Description 12/22/2024 2:15 PM CDT Office Visit [facility] Oncology and Hematology [facility] [address] [place] [id number] Yo Dial MD Malignant neoplasm of upper-outer quadrant of left breast in female, estrogen receptor positive (CMS/HCC) (Primary Dx) 12/16/2024 Orders Only [facility] Oncology and Hematology [facility] [address] [place] [id number] Yo Dial MD 12/02/2024 External Device Data STL ABSTRACTION Provider, Abstract 12/02/2024 External Device Data STL ABSTRACTION Provider, Abstract 11/10/2024 External Device Data STL ABSTRACTION Provider, Abstract 11/05/2024 External Device Data STL ABSTRACTION Provider, Abstract 11/04/2024 External Device Data STL ABSTRACTION Provider, Abstract 10/20/2024 External Device Data STL ABSTRACTION Provider, Abstract from Last 3 Months Family History Medical History Relation Name Comments Diabetes Child 1 No Known Problems Child 2 Heart Disease Father Heart Disease Mother Diabetes Sister Relation Name Status Comments Child 1 Alive Child 2 Alive Father Mother Sister Alive Social History Tobacco Use Types Packs/Day Years Used Date Smoking Tobacco: Never Tobacco Cessation:Counseling Given: Not Answered Alcohol Use Standard Drinks/Week Comments Yes 0 (1 standard drink = 0.6 oz pur e alcohol) socially Comments Unknown Sex and Gender Information Value Date Recorded Sex Assigned at Not on file Legal Sex Female 10:47 AM CDT Gender Identity Not on file Sexual Orientation Not on file Last Filed Vital Signs Vital Sign Reading Time Taken Comments Blood Pressure 97/53 12/22/2024 2:05 PM CDT Pulse 58 12/22/2024 2:05 PM CDT Temperature 36.8 C (98.2 F) 12/22/2024 2:05 PM CDT Respiratory Rate 15 12/22/2024 2:05 PM CDT Oxygen Saturation 93% 12/22/2024 2:05 PM CDT Inhaled Oxygen Concentration - - Weight 49.1 kg (108 lb 3.2 oz) 12/22/2024 2:05 P M CDT Height 152.4 cm (5') 12/26/2023 9:30 AM CDT Body Mass Index 21.13 12/26/2023 9:30 AM CDT Plan of Treatment Upcoming Encounters Date Type Department Care Team (Late st Contact Info) Description 04/21/2025 11:00 AM WHITE WASHER Office Visit [facility] Oncology and Hematology - [place] [address] [place] [address] Yo Dial MD [address] [place] [address] Health Maintenance Due Date Last Done Comments DTAP/TDAP/TD VACCINES (1 - Tdap) 1959 Traditional Medicare (ACO) Annual Wellness Visit 06/15 PNEUMOCOCCAL VACCINE 50+ YEARS (1 of 1 - PCV) 06/15/19 88 ZOSTER VACCINE (1 of 2) 1988 OSTEOPOROSIS SCREENING 2003 RSV VACCINE (60+ or ) (1 - 1-dose 75+ series) 2013 INFLUENZA VACCINE (#1) 2025 Procedures Procedure Name Priority Date/Time Associated Diagnosis Comments CBC WITH DIFFERENTIAL Routine 12/16/2024 12:37 PM CDT from Last 3 Months Results * CBC WITH DIFFERENTIAL (12/16/2024 12:37 PM CDT) Blood us Yo Dial MD HEMATOLOGY ORDERABLES Final Res ult from Last 3 Months Insurance RETIRED [employer]YE[employer] MEDICARE RAILROAD
== END 2024-12-24 10:15 | disposition home or self-care (01) ==
LOC: ANHIMG 10:17
PROVIDERS: PCP Family Medicine; Visit Provider Surgery
DX: Z12.31 Encounter for screening mammogram for malignant neoplasm of breast (principal)
CPT/HCPCS: 77063; 77067